=== PATIENT | male | born 1945 | race Caucasian/White ===

== ENCOUNTER 2022-03-10 06:00 | Inpatient (IN) | payer MEDICARE, MEDICAID, SELFPAY ==
--- NOTE | ~2022-03-10 | XR_ITS ---
EXAMINATION: XR CHEST CLINICAL INFORMATION: Evaluate for pleural effusion. COMPARISON: Chest radiograph 03/12/2022, CT abdomen pelvis 03/13/2021 TECHNIQUE: Frontal view of the chest was obtained. FINDINGS: Moderate blunting of the left costophrenic sulcus is again noted along with left base dense airspace type opacification and gradient opacification suspicious for fluid within the left major fissure. No pneumothoraces are identified. The visualized right lung is clear. The cardiac silhouette is grossly normal in size. Findings suspicious for a trace left apical pneumothorax are noted with possible visualization of the visceral pleural margin in projection with the left lung apex approximately 1 cm from the parietal pleura. XR/XR chest 1V IMPRESSION: *Moderate left pleural effusion grossly unchanged in size compared with 03/12/2022 11:36 AM. *Possible trace left apical pneumothorax new compared with 03/12/2022. *Unchanged left base airspace opacification which may represent a combination of pulmonary consolidation and as suggested on the CT of the abdomen and pelvis from 03/13/2022 may also represent of a possible left lower lobe mass. This critical result (pneumothorax) was discussed with Razia Rowe MD by telephone at 03/17/2022 8:23 PM and it was ascertained that the content and urgency of the report was understood at the time of direct communication.
--- NOTE | ~2022-03-10 | CT_ITS ---
EXAMINATION: CT ABDOMEN AND PELVIS WITH CONTRAST CLINICAL INFORMATION: Pancreatic mass. Possible underlying lung mass. COMPARISON: CT chest of 03/10/2022. TECHNIQUE: Multidetector volumetric images were obtained from the superior aspect of the liver through the pubic symphysis following administration 75 mL of Omnipaque 300 intravenous contrast. Sagittal and coronal reformatted images were obtained on the technologist's workstation. Oral contrast: No This CT examination was performed using dose optimization techniques as appropriate, variously including the following: *Automated exposure control *Adjustment of mA and/or kV according to patient size (this includes techniques or standardized protocols for targeted exams where dose is matched to indication/reason for exam; i.e. extremities or head) *Use of iterative reconstruction technique DLP: 446 mGy-cm FINDINGS: LUNG BASES: There is a small left pleural effusion with what appears to be atelectasis. An associated left lower lobe mass cannot be excluded. Discoid atelectasis is seen within the right lower lobe. Heart normal size. Coronary artery calcification present. No pericardial effusion. LIVER, GALLBLADDER, AND BILIARY TREE: The liver is normal in size, shape, and attenuation. No focal hepatic lesion or biliary ductal dilatation is present. The gallbladder is unremarkable with no evidence of radiopaque gallstones, gallbladder wall thickening, or obvious pericholecystic inflammatory changes. PANCREAS: There has been some fatty involution of the pancreas. About the ventral aspect of the body of the pancreas, there is a fluid density 2.1 x 1.4 x 1.8 cm structure which may represent a serous cystadenoma or mucinous (IPMN) pancreatic tumor. SPLEEN: Unremarkable. ADRENAL GLANDS: Unremarkable. KIDNEYS AND URETERS: The kidneys are normal in size, shape, and attenuation. No hydronephrosis, hydroureter, or calculi are seen. There is perinephric stranding. There is a 2.5 cm cyst exophytic in the lower pole of the left kidney. BLADDER: The urinary bladder has a thickened wall with multiple diverticula identified, one of which on the right side appears to contain a 1.5 cm bladder stone. The largest diverticulum seems to be in the superior posterior aspect measuring 2.1 cm in diameter. GASTROINTESTINAL TRACT: No free air or free fluid is identified. No dilated loops of large or small bowel are seen. There is diverticulosis of the colon without evidence of acute diverticulitis. No evidence of acute appendicitis. ABDOMINAL WALL: No significant hernia is appreciated. LYMPH NODES: No lymphadenopathy appreciated. VASCULAR: Moderate aortoiliac calcified plaque is present. No abdominal aortic aneurysm. Visceral vessels are patent. PELVIC VISCERA: Prominent prostate gland with a large amount of calcification. OSSEOUS STRUCTURES: No suspicious destructive bony lesion identified. CT/CT abdomen pelvis w con IMPRESSION: Left lower lobe effusion with parenchymal disease and possible underlying mass. 2.1 cm maximum dimension low-density lesion within the body of the pancreas which may represent a serous or mucinous pancreatic tumor. No findings to suggest metastatic disease. Left renal cyst without evidence of obstructive uropathy. Thick-walled urinary bladder with numerous diverticula, one of which contains a large bladder stone along the right side of the urinary bladder. Fleischner guidelines were followed.
--- NOTE | ~2022-03-10 | US_ITS ---
PROCEDURE: US INSERTION PLEURX CATHETER CLINICAL INFORMATION: Malignant left pleural effusion. COMPARISON: Previous chest x-ray and chest CT from earlier this month. PROCEDURE: Procedure and risks and benefits including bleeding, infection and pneumothorax were discussed with the patient and informed consent was obtained. The patient was positioned in the right lateral decubitus position. The left lateral chest was prepped and draped in the usual sterile fashion. The skin and soft tissues were anesthetized with 1% lidocaine plain. Using a 5-[place] catheter, access to the left pleural fluid was obtained. The skin and soft tissues of the more anterior left chest were anesthetized with 1% lidocaine plain. A small incision was made. A subcutaneous tunnel from the more anterior to the more posterior incision was anesthetized with 1% lidocaine plain. Using a tunneler, a 15.5-[place] Pleurx catheter was tunneled from the more anterior to the more posterior incision. An 035 guidewire was advanced through the 5-[place] Citizen dilator into the pleural space. Following serial dilatation and through a peel-away sheath, a 15.5-[place] Pleurx catheter was positioned in the left pleural space. Catheter was attached to a Vacutainer bottle. 1 L of serosanguineous fluid was removed. The posterior incision was closed using a 3-0 absorbable suture. The more anterior incision surrounding the drain was closed using a 3-0 mattress suture. Patient received Kefzol 2 g IV and fentanyl 75 mcg IV during the procedure. Follow-up chest x-ray was performed. FINDINGS: There is a large left pleural effusion. US/US insertion pluerx cath IMPRESSION: Ultrasound-guided 15.5-[place] left Pleurx catheter placement.
--- NOTE | ~2022-03-10 | XR_ITS ---
EXAMINATION: XR CHEST CLINICAL INFORMATION: Post left thoracentesis. COMPARISON: None TECHNIQUE: Inspiration/expiration 2 views of the chest were obtained. FINDINGS: Post left thoracentesis there is left lower lobe atelectatic changes. No visible pneumothorax or any residual left pleural effusion. The right lung is hypoexpanded with patchy atelectatic changes in the right lung base. The heart size and pulmonary vascularity is normal. No gross bony abnormality seen. XR/XR chest 2V IMPRESSION: Status post left thoracentesis there is no visible pneumothorax or residual left pleural effusion. There is left lower lobe atelectasis. Minimal atelectatic changes are also seen in the right lung base.
--- NOTE | ~2022-03-10 | XR_ITS ---
EXAMINATION: XR CHEST CLINICAL INFORMATION: Left chest tube. COMPARISON: 03/18/2022 chest radiographs. TECHNIQUE: Frontal view of the chest was obtained. FINDINGS: Support devices: Interval placement of left-sided chest tube with tip overlying the left upper lobe. There has been interval decrease in opacification in the left midlung with persistent small left pleural effusion. The right lung is clear. The heart and mediastinal structures are unremarkable. XR/XR chest 1V IMPRESSION: Interval decrease in left pleural effusion status post left chest tube placement. Persistent small left pleural effusion without overt pneumothorax.
--- NOTE | ~2022-03-10 | US_ITS ---
PROCEDURE: US-GUIDED THORACENTESIS, LEFT CLINICAL INFORMATION: Left pleural effusion. COMPARISON: None. TECHNIQUE: Following explaining ultrasound-guided left thoracentesis procedure, benefits and risk, a written consent was obtained. Patient was placed sitting upright on ultrasound stretcher and preliminary ultrasound imaging through the left posterior chest was obtained. An optimal site was selected and marked along the left infrascapular line. The marked area was cleaned and draped in usual sterile manner. 1% lidocaine was injected at the puncture site. Patient was monitored by IR nurse. Through a small skin incision a 4 Arabic TapShield catheter was advanced into the pleural space. After observing fluid return the stylet was withdrawn and catheter connected to vacuum bottle via connecting cannula. After obtaining all fluid and observing no more fluid return, the catheter was withdrawn making sure no air leaked in. Sterile dressing applied postprocedure. Patient tolerated procedure extremely well. FINDINGS: On preliminary ultrasound imaging there is a [id number] left pleural effusion. Approximately 1.1 L of clear yellowish fluid was drained from the left pleural space. Part of this fluid was sent to lab as per referring physician's orders. US/US thoracentesis IMPRESSION: Successful ultrasound-guided left thoracentesis performed with approximately 1.1 L of yellowish fluid drained from the left pleural space.
--- NOTE | ~2022-03-10 | XR_ITS ---
EXAMINATION: XR CHEST CLINICAL INFORMATION: Follow-up pneumothorax COMPARISON: Previous chest x-ray from yesterday TECHNIQUE: 2 views of the chest were obtained. FINDINGS: The cardiac silhouette is enlarged but stable. There is a small left pleural effusion that appears unchanged. There is a large mass in the left perihilar region versus loculated pleural fluid. There is more peripheral left lung atelectasis adjacent to the pleural fissure. The right lung is clear. There is a very small right pleural effusion. There is no pneumothorax. XR/XR chest 2V IMPRESSION: No pneumothorax. Stable left pleural effusion and left lung atelectasis. Question loculated left pleural effusion along the major fissure versus lung mass.
--- NOTE | ~2022-03-10 | XR_ITS ---
EXAMINATION: XR CHEST CLINICAL INFORMATION: Shortness of breath COMPARISON: None TECHNIQUE: Frontal view of the chest was obtained. FINDINGS: There is elevation of the left hemidiaphragm with adjacent basilar opacity. Mild atelectasis is suspected at the right lung base. No appreciable pneumothorax or significant pleural effusion. The cardiomediastinal contour is unremarkable. No acute osseous findings are seen. XR/XR chest 1V IMPRESSION: Elevated left hemidiaphragm with bibasilar opacities suggesting at least a component of atelectasis. Superimposed consolidation including from aspiration would be difficult to exclude in the proper clinical setting.
--- NOTE | ~2022-03-10 | CT_ITS ---
EXAMINATION: CT ANGIOGRAM OF THE CHEST WITH AND WITHOUT CONTRAST (CT PULMONARY ANGIOGRAM FOR PE) CLINICAL INFORMATION: Acute hypoxia. Shortness of breath. Elevated d-dimer. COMPARISON: Chest radiograph done earlier the same day. TECHNIQUE: Prior to contrast administration, noncontrast localization images were obtained. Subsequently, multidetector volumetric imaging was performed from the thoracic inlet to below the diaphragms following the administration of 65 mL Omnipaque 350 intravenous contrast. No contrast reaction reported. Sagittal, coronal, and MIP oblique sagittal reformatted images were obtained on the CT workstation, uploaded to PACS, and reviewed. This CT examination was performed using dose optimization techniques as appropriate, variously including the following: *Automated exposure control *Adjustment of mA and/or kV according to patient size (this includes techniques or standardized protocols for targeted exams where dose is matched to indication/reason for exam; i.e. extremities or head) *Use of iterative reconstruction technique Total exam dose-length product 370 mGy-cm FINDINGS: QUALITY OF STUDY/CONTRAST BOLUS: Satisfactory. PULMONARY ARTERIES: No central or segmental pulmonary emboli. THORACIC AORTA: No aneurysm or dissection. Partially visualized prominent mural plaque within the infrarenal abdominal aorta measuring up to 1.9 x 0.8 cm. LUNG/PLEURA: There is a moderate left-sided pleural effusion with adjacent atelectasis versus infiltrates. There is ovoid density along the left minor fissure measuring 5.4 x 7.3 cm in greatest axial dimension with internal vasculature and measuring approximately 44 Hounsfield units. Findings could represent complex fluid versus a soft tissue mass. There is adjacent atelectasis versus infiltrates. There is linear scarring versus atelectasis within the right lower lobe. MEDIASTINUM: Normal heart size. No pericardial effusion. No hilar or mediastinal lymphadenopathy. No evidence of septal bowing or right heart strain. CHEST WALL/AXILLA: No axillary or internal mammary lymphadenopathy. OSSEOUS STRUCTURES: No acute or suspicious osseous abnormality. UPPER ABDOMEN: Along the dorsal aspect of the pancreatic body, there is a lobulated 2.0 x 1.6 cm focus measuring up to 3.6 cm. Findings could represent a cystic pancreatic lesion. The remaining pancreas is diffusely atrophic and fatty replaced. Upper abdominal structures are otherwise unremarkable. No reflux of contrast into the hepatic veins to suggest elevated right heart pressures. CT/CT angio chest PE protocol IMPRESSION: 1. No central or segmental pulmonary embolism. 2. Moderate left-sided pleural effusion with adjacent atelectasis versus infiltrates. Ovoid density measuring up to 7.3 cm with internal vasculature measuring approximately 44 Hounsfield units. Findings could represent a complex cystic focus versus a soft tissue mass. This is concerning for a neoplastic process. There is adjacent atelectasis versus infiltrates. Alternatively, findings could represent atypical appearance of a focal infectious or inflammatory process versus complex fluid within the fissure. 3. No significant lymphadenopathy. 4. Partially visualized cystic lesion along the dorsal aspect of the pancreatic body measuring up to 2.0 cm. The remaining pancreatic parenchyma is significantly atrophic and fatty replaced. 5. Partially visualized mural plaque within the upper abdominal aorta measuring up to 1.9 x 0.8 cm and involving approximately 40% of the aortic lumen. VTE: negative
--- NOTE | 2022-03-10 06:10 | ECG_ITS ---
Test Reason : AFIB Blood Pressure : / mmHG Vent. Rate : 087 BPM Atrial Rate : 000 BPM P-R Int : 000 ms QRS Dur : 076 ms QT Int : 348 ms P-R-T Axes : 000 031 043 degrees QTc Int : 418 ms Atrial fibrillation Low voltage QRS Abnormal ECG No previous ECGs available Referred By: Aide Gao Electronically Signed By:Shaji Schafer
[2022-03-10 06:17] VITALS: BP 156/68; PULSE 90; RESP 24; TEMP 37; O2SAT 92
[2022-03-10 06:18] VITALS: BMI 28.3
--- NOTE | 2022-03-10 06:19 | ED_ITS ---
HPI - SOB/Dyspnea General Chief Complaint: Dyspnea Stated Complaint: SOB Time Seen by Provider: 03/10/22 06:09 Source: patient and EMS Mode of arrival: EMS History of Present Illness HPI Narrative: 76-year-old male with recent history of CVA and recently treated for pneumonia is brought in by EMS for getting up this morning and becoming acutely short of breath and found to be 87% on room air and increased work of breathing with tachypnea. Patient reports he does have a history of atrial fibrillation but is not currently on anticoagulation. He states he has never been told that he has a condition called congestive heart failure, COPD, asthma and denies any chest pain/palpitations/abdominal symptoms. Patient currently is feeling much improved. Related Data Allergies Allergy/AdvReac Type Severity Reaction Status Date / Time Unable to Assess Allergy Unverified 03/10/22 06:09 Review of Systems Review of Systems: Pertinent positives and negatives as stated in HPI 10 point review of systems is otherwise negative. [facility] Past Medical History Source: nursing notes reviewed Social History Social History Advance Directives: No Advance Directives Information Provided: No Physical Exam Vital Signs: Vital Signs: Last Vital Signs Temp 98.6 F 03/10/22 06:17 Pulse 85 03/10/22 07:27 Resp 20 03/10/22 07:27 BP 128/60 03/10/22 07:27 Pulse Ox 93 03/10/22 07:27 BMI result Body Mass Index 28.3 VITAL SIGNS: Reviewed. GENERAL: Elderly,well nourished, in no acute distress. HEAD: Normocephalic/atraumatic EYES: PERRLA, EOMI EARS: Ext canals without abnormality NOSE: Nares patent bilateral OROPHARYNX: no oral lesions noted, posterior pharynx clear LUNGS: Good inspiratory effort without wheeze/rhonchi/rales. SpO2<92> on 4 L nasal cannula CARDIOVASCULAR: Regular rate and rhythm without noted murmurs, no JVD or lower extremity edema. ABDOMEN: Soft, non-tender, non-distended with bowel sounds. MUSCULOSKELETAL: No tenderness, deformities, or effusions noted on gross ins pection. EXTREMITIES: No cyanosis, clubbing or edema. SKIN: Inspection of the skin reveals no rashes NEUROLOGIC: Alert and oriented x 4. Strength and sensation to light touch were grossly intact x 4, patient has residual speech difficulties from his CVA as well as ambulating with a walker at baseline. Course Course Course Narrative: 0623: 76-year-old male with history and clinical presentation of acute onset respiratory failure will evaluate for possibility of pulmonary edema, hypercapnia although patient has no history of COPD or asthma as not noted to be wheezing. In addition, will rule out the possibility a pneumonia. On review of all investigations there is a noted elevated BNP and patient received 60 mg of Lasix, D-dimer was mildly elevated and given the acuteness of patient's shortness of breath and persistent need for supplemental oxygen pursued CT angio with PE protocol. Under brief review of the CT scan there is a large left pleural effusion that is at least a part contributed year to patient's persistent hypoxia. I requested all records from [facility] and signed out to Dr. Villeda. Patient remains otherwise hemodynamically stable, calm, and comfortable. MDM - SOB/Dyspnea Lab Data Result diagrams: 03/10/22 06:34 03/10/22 06:34 Labs: Lab Results 03/10/22 03/10/22 03/10/22 Range/Units 06:34 06:34 06:34 WBC (4.8-10.8) X10*3/uL RBC (4.60-5.80) X10*6/uL Hgb (14.0-18.0) g/dl Hct (42.0-52.0) % MCV (80.0-98.0) fL MCH (27.0-33.0) pg MCHC (31.0-36.0) g/dl RDW (11.0-16.0) % Plt Count (160-400) X10*3/uL MPV (9.4-12.4) fL Immature Gran % (Auto) (0.0-0.4) % Neut % (Auto) (45-73) % Lymph % (Auto) (20-40) % Catron % (Auto) (2-11) % Eos % (Auto) (0-4) % Baso % (Auto) (0-2) % Lymph # (Auto) (1.2-4.9) X10*3/uL Catron # (Auto) (0.1-1.2) X10*3/uL Eos # (Auto) (0.0-0.4) X10*3/uL Baso # (Auto) (0.0-0.2) X10*3/uL Abs Immat Gran (auto) (0.00-0.03) X10*3/uL Absolute Neuts (auto) (2.0-8.3) x10*3/uL Absolute Nucleated RBC (0.0-0.012) X10*3/uL Nucleated RBC % (auto) (0.0-0.2) /100WBC D-Dimer High Sensitivty NG/ML VBG pH (7.32-7.43) VBG pCO2 mmHg VBG pO2 mmHg VBG HCO3 (22-26) mmol/L VBG O2 Saturation % VBG Base Excess mmol/L Sodium (135-145) mmol/L Potassium (3.3-5.1) mmol/L Chloride (96-108) mmol/L Carbon Dioxide (22-29) mmol/L Anion Gap (12-20) BUN (9-16) mg/dL Creatinine (0.5-1.4) mg/dL Estim Creat Clear Calc Estimated GFR Random Glucose (60-115) mg/dL Lactic Acid (0.5-2.0) mmol/L Calcium (8.4-10.2) mg/dL Total Bilirubin (0.0-1.0) mg/dL AST (5-37) U/L ALT (0-40) U/L Alkaline Phosphatase (39-117) U/L Troponin I High Sens (<3.5-35.0) ng/L B-Natriuretic Peptide 323 H (<100) pg/mL Total Protein (6.5-8.0) g/dL Albumin (3.5-5.0) g/dL COVID-19 ([facility]) Negative (Negative) COVID-19 Clin Com See Note Influenza Type A (JOSEFA) Negative (Negative) Influenza Type B (JOSEFA) Negative (Negative) Influenza A & B Note See Note 03/10/22 03/10/22 03/10/22 Range/Units 06:34 06:34 06:34 WBC 8.3 (4.8-10.8) X10*3/uL RBC 4.19 L (4.60-5.80) X10*6/uL Hgb 12.2 L (14.0-18.0) g/dl Hct 37.4 L (42.0-52.0) % MCV 89.3 (80.0-98.0) fL MCH 29.1 (27.0-33.0) pg MCHC 32.6 (31.0-36.0) g/dl RDW 13.2 (11.0-16.0) % Plt Count 241 (160-400) X10*3/uL MPV 9.4 (9.4-12.4) fL Immature Gran % (Auto) 0.4 (0.0-0.4) % Neut % (Auto) 69.9 (45-73) % Lymph % (Auto) 16.2 L (20-40) % Catron % (Auto) 9.8 (2-11) % Eos % (Auto) 3.1 (0-4) % Baso % (Auto) 0.6 (0-2) % Lymph # (Auto) 1.3 (1.2-4.9) X10*3/uL Catron # (Auto) 0.8 (0.1-1.2) X10*3/uL Eos # (Auto) 0.3 (0.0-0.4) X10*3/uL Baso # (Auto) 0.1 (0.0-0.2) X10*3/uL Abs Immat Gran (auto) 0.03 (0.00-0.03) X10*3/uL Absolute Neuts (auto) 5.8 (2.0-8.3) x10*3/uL Absolute Nucleated RBC 0.000 (0.0-0.012) X10*3/uL Nucleated RBC % (auto) 0.0 (0.0-0.2) /100WBC D-Dimer High Sensitivty NG/ML VBG pH (7.32-7.43) VBG pCO2 mmHg VBG pO2 mmHg VBG HCO3 (22-26) mmol/L VBG O2 Saturation % VBG Base Excess mmol/L Sodium 138 (135-145) mmol/L Potassium 4.5 (3.3-5.1) mmol/L Chloride 100 (96-108) mmol/L Carbon Dioxide 28 (22-29) mmol/L Anion Gap 15 (12-20) BUN 20 H (9-16) mg/dL Creatinine 0.96 (0.5-1.4) mg/dL Estim Creat Clear Calc 65.0 Estimated GFR > 60 Random Glucose 145 H (60-115) mg/dL Lactic Acid 1.0 (0.5-2.0) mmol/L Calcium 9.3 (8.4-10.2) mg/dL Total Bilirubin 0.5 (0.0-1.0) mg/dL AST 14 (5-37) U/L ALT 10 (0-40) U/L Alkaline Phosphatase 68 (39-117) U/L Troponin I High Sens (<3.5-35.0) ng/L B-Natriuretic Peptide (<100) pg/mL Total Protein 6.7 (6.5-8.0) g/dL Albumin 3.4 L (3.5-5.0) g/dL COVID-19 ([facility]) (Negative) COVID-19 Clin Com Influenza Type A (JOSEFA) (Negative) Influenza Type B (JOSEFA) (Negative) Influenza A & B Note 03/10/22 03/10/22 03/10/22 Range/Units 06:34 06:34 06:37 WBC (4.8-10.8) X10*3/uL RBC (4.60-5.80) X10*6/uL Hgb (14.0-18.0) g/dl Hct (42.0-52.0) % MCV (80.0-98.0) fL MCH (27.0-33.0) pg MCHC (31.0-36.0) g/dl RDW (11.0-16.0) % Plt Count (160-400) X10*3/uL MPV (9.4-12.4) fL Immature Gran % (Auto) (0.0-0.4) % Neut % (Auto) (45-73) % Lymph % (Auto) (20-40) % Catron % (Auto) (2-11) % Eos % (Auto) (0-4) % Baso % (Auto) (0-2) % Lymph # (Auto) (1.2-4.9) X10*3/uL Catron # (Auto) (0.1-1.2) X10*3/uL Eos # (Auto) (0.0-0.4) X10*3/uL Baso # (Auto) (0.0-0.2) X10*3/uL Abs Immat Gran (auto) (0.00-0.03) X10*3/uL Absolute Neuts (auto) (2.0-8.3) x10*3/uL Absolute Nucleated RBC (0.0-0.012) X10*3/uL Nucleated RBC % (auto) (0.0-0.2) /100WBC D-Dimer High Sensitivty 443 NG/ML VBG pH 7.43 (7.32-7.43) VBG pCO2 39 mmHg VBG pO2 208 mmHg VBG HCO3 26 (22-26) mmol/L VBG O2 Saturation 100.0 % VBG Base Excess 2.2 mmol/L Sodium (135-145) mmol/L Potassium (3.3-5.1) mmol/L Chloride (96-108) mmol/L Carbon Dioxide (22-29) mmol/L Anion Gap (12-20) BUN (9-16) mg/dL Creatinine (0.5-1.4) mg/dL Estim Creat Clear Calc Estimated GFR Random Glucose (60-115) mg/dL Lactic Acid (0.5-2.0) mmol/L Calcium (8.4-10.2) mg/dL Total Bilirubin (0.0-1.0) mg/dL AST (5-37) U/L ALT (0-40) U/L Alkaline Phosphatase (39-117) U/L Troponin I High Sens 6.1 (<3.5-35.0) ng/L B-Natriuretic Peptide (<100) pg/mL Total Protein (6.5-8.0) g/dL Albumin (3.5-5.0) g/dL COVID-19 ([facility]) (Negative) COVID-19 Clin Com Influenza Type A (JOSEFA) (Negative) Influenza Type B (JOSEFA) (Negative) Influenza A & B Note ECG Data Attestation: I personally reviewed and interpreted this ECG as follows: Prior ECG tracings: not available for review Interpretation: Atrial fibrillation, HR-87, no STEMI, QRS/QTC are within normal limits. Discharge Plan Discharge Clinical Impression: Acute respiratory failure with hypoxemia, Atrial fibrillation, Pleural effusion, left, Pulmonary edema Patient Disposition: Still a Patient
[2022-03-10 06:42] LABS: MANUAL DIFF FLAG NO
[2022-03-10 06:45] LABS: Basophils Absolute Auto 0.1 X10*3/uL (0.0-0.2); Basophils Percent Auto 0.6 % (0-2); Eosinophils Absolute Auto 0.3 X10*3/uL (0.0-0.4); Eosinophils Percent Auto 3.1 % (0-4); Hematocrit 37.4 % (42.0-52.0); Hemoglobin 12.2 g/dl (14.0-18.0); Imm Gran Abs Auto 0.03 X10*3/uL (0.00-0.03); Imm Gran Pct Auto 0.4 % (0.0-0.4); Lymphocytes Absolute Auto 1.3 X10*3/uL (1.2-4.9); Lymphocytes Percent Auto 16.2 % (20-40); Mean Corpuscular HGB Conc 32.6 g/dl (31.0-36.0); Mean Corpuscular Hemoglobin 29.1 pg (27.0-33.0); Mean Corpuscular Volume 89.3 fL (80.0-98.0); Mean Platelet Volume 9.4 fL (9.4-12.4); Monocytes Absolute Auto 0.8 X10*3/uL (0.1-1.2); Monocytes Percent Auto 9.8 % (2-11); Neutrophils Absolute Auto 5.8 x10*3/uL (2.0-8.3); Neutrophils Percent Auto 69.9 % (45-73); Platelet Count 241 X10*3/uL (160-400); Red Blood Count 4.19 X10*6/uL (4.60-5.80); Red Cell Distribution Width 13.2 % (11.0-16.0); Venous Blood Gas Refer to POC result; White Blood Count 8.3 X10*3/uL (4.8-10.8)
[2022-03-10 06:46] LABS: VBG Base Excess 2.2 mmol/L; VBG HCO3 26 mmol/L (22-26); VBG pCO2 39 mmHg; VBG pH 7.43 (7.32-7.43); VBG pO2 208 mmHg
[2022-03-10 06:51] LABS: D Dimer High Sensitivity 443 NG/ML
[2022-03-10 07:00] LABS: COVID-19 Test Negative (Negative); IDNOW Serial# 16C4AD1C
[2022-03-10 07:01] LABS: Alanine Aminotransferase 10 U/L (0-40); Albumin Level 3.4 g/dL (3.5-5.0); Alkaline Phosphatase 68 U/L (39-117); Anion Gap 15 (12-20); Aspartate Amino Transferase 14 U/L (5-37); Bilirubin Total 0.5 mg/dL (0.0-1.0); Blood Urea Nitrogen 20 mg/dL (9-16); Calcium 9.3 mg/dL (8.4-10.2); Carbon Dioxide 28 mmol/L (22-29); Chloride 100 mmol/L (96-108); Estimated Glomerular Filt Rate > 60; Glucose Random 145 mg/dL (60-115); Influenza A Negative (Negative); Influenza B2 Negative (Negative); Potassium 4.5 mmol/L (3.3-5.1); Sodium 138 mmol/L (135-145); Total Protein 6.7 g/dL (6.5-8.0)
[2022-03-10 07:03] LABS: B Type Natriuretic Peptide 323 pg/mL (<100); Troponin-I High Sensitivity 6.1 ng/L (<3.5-35.0)
[2022-03-10 07:05] VITALS: BP 114/55; PULSE 86; RESP 20; O2SAT 90
[2022-03-10 07:27] VITALS: BP 128/60; PULSE 85; RESP 20; O2SAT 93
[2022-03-10] MEDS: Furosemide 100 MG/10 ML VIAL 60 MG IVPUSH (07:29)
[2022-03-10] MEDS: iohexoL 350 MG/ML 75 ML INFUS..BTL 65 ML IV (08:23)
--- NOTE | 2022-03-10 09:44 | PHA.MEDREC ---
Pharmacy Consult ? Medication Reconciliation Pharmacy has completed the medication reconciliation. Patient came from [facility] with a medication list. Annemarie Hester, SharonD
--- NOTE | 2022-03-10 09:52 | PC.NURSE ---
pt on 10L via oxymask. O2 sats 95%.
[2022-03-10] MEDS: levoFLOXacin/D5W 500 MG/100 ML PIGGYBACK 100 MG IV (10:17)
[2022-03-10 10:21] LABS: INTERNATIONAL NORM RATIO 1.1 (0.9-1.1); Prothrombin Time 12.7 SEC (9.9-13.0)
[2022-03-10 10:24] LABS: Lactic Acid 1.3 mmol/L (0.5-2.0)
--- NOTE | 2022-03-10 12:26 | PM.IMHP ---
History of Present Illness Date of Service: 03/10/22 Chief Complaint: sob 76M presented with sob. history difficult to obtain due to brocas aphasia from preivous cva, patient reports 2 weeks worsening sob, cough, no fever, no chillds, no chest pain. patient was found to be hypoxic in the 70s on room air. in ED was 87% on room air. CT chest showed no pe, but showed left effusion with 7.3cm ovoid density. patient given levaquin. Review of Systems Review of Systems: Constitutional: Denies fever, denies Chills Eyes: denies blurry vision ENT: denies sore throat CVS: denies chest pain Respiratory: dyspnea GI: no abdominal pain : denies dysuria MSK: denies neck pain Skin: denies rash Neuro: chornic right sided motor weakness Psych: denies suicidal ideation Endocrine: denies heat/cold intolerance Hematologic: denies easy bleeding Allergy: denies hives [facility] Medical History (Updated 03/10/22 @ 12:31 by Malcolm Light MD) Aphasia Diabetes mellitus History of CVA (cerebrovascular accident) Right hemiparesis Pertinent family history: patient unaware Social History (Updated 03/10/22 @ 12:31 by Malcolm Light MD) Alcohol intake: never Patient Tobacco Use Status: Tobacco use Unknown Advance Directives: No Advance Directives Information Provided: No Meds Allergies Allergy/AdvReac Type Severity Reaction Status Date / Time Unable to Assess Allergy Unverified 03/10/22 06:09 Active Medications: Current Medications Amlodipine Besylate (Amlodipine Besylate 5 Mg Tablet) 5 mg PO DAILY [facility]; Protocol Aspirin (Aspirin 81 Mg Tab.Chew) 81 mg PO DAILY [facility] Atorvastatin Calcium (Atorvastatin Calcium 40 Mg Tablet) 40 mg PO DAILY [facility] Doxazosin Mesylate (Doxazosin Mesylate 2 Mg Tablet) 8 mg PO BEDTIME [facility]; Protocol Finasteride (Finasteride 5 Mg Tablet) 5 mg PO DAILY [facility] Non-Formulary Medication (Clorazepate Dipotassium) 7.5 mg PO TID [facility] Pharmacy Consult (Consult Rx Perform Med Rec) 1 each MISCELLANE ONCE PRN PRN Reason: Consult order Vitamin D (Cholecalciferol (Vitamin D3) 25 Mcg Tablet) 50 mcg PO DAILY [facility] Home Medications Medication Instructions Recorded Confirmed Last Taken Type acetaminophen 325 mg tablet 650 mg PO Q4H PRN 03/10/22 03/10/22 03/10/22 History amlodipine 5 mg tablet 1 tab PO DAILY 03/10/22 03/10/22 03/09/22 History aspirin 81 mg chewable tablet 81 mg PO DAILY 03/10/22 03/10/22 03/09/22 History atorvastatin 40 mg tablet 1 tab PO DAILY 03/10/22 03/10/22 03/09/22 History cholecalciferol (vitamin D3) 50 50 mcg PO DAILY 03/10/22 03/10/22 03/09/22 History mcg (2,000 unit) tablet clorazepate dipotassium 7.5 mg 7.5 mg PO TID 03/10/22 03/10/22 03/09/22 History tablet doxazosin 8 mg tablet 1 tab PO BEDTIME 03/10/22 03/10/22 03/09/22 History finasteride 5 mg tablet 1 tab PO DAILY 03/10/22 03/10/22 03/09/22 History losartan 100 mg tablet 1 tab PO DAILY 03/10/22 03/10/22 03/09/22 History metformin 500 mg tablet 1 tab PO BID 03/10/22 03/10/22 03/09/22 History omega 1-pis-cek-fish oil 1,200 mg 3 cap PO DAILY 03/10/22 03/10/22 03/09/22 History (144 mg-216 mg) capsule (Fish Oil) perphenazine 2 mg tablet 4 mg PO TID 03/10/22 03/10/22 03/09/22 History Physical Exam Vital Signs and Narrative: Vital Signs: Last Vital Signs Temp 98.6 F 03/10/22 06:17 Pulse 85 03/10/22 07:27 Resp 20 03/10/22 07:27 BP 128/60 03/10/22 07:27 Pulse Ox 93 03/10/22 07:27 BMI result Body Mass Index 28.3 General: no acute distress HEENT: atraumatic Neck: normal to visual inspection CVS: S1, S2, RRR Resp: diminished left sided Chest: non tender GI: soft, non tender, non distended : no CVA tenderness Skin: no rashes Extremities: no edema Neuro: Oriented X3, brocas aphasia, right hemiparesis Psych: cooperative Results Labs CBC and Chem 7: 03/10/22 06:34 03/10/22 06:34 Labs: Laboratory Results - last 24 hr 03/10/22 03/10/22 03/10/22 06:34 06:34 06:34 MCV MCH MCHC RDW Plt Count MPV Immature Gran % (Auto) Neut % (Auto) Lymph % (Auto) Russell % (Auto) Eos % (Auto) Baso % (Auto) Lymph # (Auto) Russell # (Auto) Eos # (Auto) Baso # (Auto) Abs Immat Gran (auto) Absolute Neuts (auto) Absolute Nucleated RBC Nucleated RBC % (auto) PT INR D-Dimer High Sensitivty VBG pH VBG pCO2 VBG pO2 VBG HCO3 VBG O2 Saturation VBG Base Excess Anion Gap Estim Creat Clear Calc Estimated GFR Random Glucose Lactic Acid Calcium Total Bilirubin AST ALT Alkaline Phosphatase Troponin I High Sens B-Natriuretic Peptide 323 H Total Protein Albumin COVID-19 ([facility]) Negative COVID-19 Clin Com See Note Influenza Type A (JOSEFA) Negative Influenza Type B (JOSEFA) Negative Influenza A & B Note See Note 03/10/22 03/10/22 03/10/22 06:34 06:34 06:34 MCV 89.3 MCH 29.1 MCHC 32.6 RDW 13.2 Plt Count 241 MPV 9.4 Immature Gran % (Auto) 0.4 Neut % (Auto) 69.9 Lymph % (Auto) 16.2 L Russell % (Auto) 9.8 Eos % (Auto) 3.1 Baso % (Auto) 0.6 Lymph # (Auto) 1.3 Russell # (Auto) 0.8 Eos # (Auto) 0.3 Baso # (Auto) 0.1 Abs Immat Gran (auto) 0.03 Absolute Neuts (auto) 5.8 Absolute Nucleated RBC 0.000 Nucleated RBC % (auto) 0.0 PT INR D-Dimer High Sensitivty VBG pH VBG pCO2 VBG pO2 VBG HCO3 VBG O2 Saturation VBG Base Excess Anion Gap 15 Estim Creat Clear Calc 65.0 Estimated GFR > 60 Random Glucose 145 H Lactic Acid 1.0 Calcium 9.3 Total Bilirubin 0.5 AST 14 ALT 10 Alkaline Phosphatase 68 Troponin I High Sens B-Natriuretic Peptide Total Protein 6.7 Albumin 3.4 L COVID-19 ([facility]G) COVID-19 Clin Com Influenza Type A (JOSEFA) Influenza Type B (JOSEFA) Influenza A & B Note 03/10/22 03/10/22 03/10/22 06:34 06:34 06:37 MCV MCH MCHC RDW Plt Count MPV Immature Gran % (Auto) Neut % (Auto) Lymph % (Auto) Russell % (Auto) Eos % (Auto) Baso % (Auto) Lymph # (Auto) Russell # (Auto) Eos # (Auto) Baso # (Auto) Abs Immat Gran (auto) Absolute Neuts (auto) Absolute Nucleated RBC Nucleated RBC % (auto) PT INR D-Dimer High Sensitivty 443 VBG pH 7.43 VBG pCO2 39 VBG pO2 208 VBG HCO3 26 VBG O2 Saturation 100.0 VBG Base Excess 2.2 Anion Gap Estim Creat Clear Calc Estimated GFR Random Glucose Lactic Acid Calcium Total Bilirubin AST ALT Alkaline Phosphatase Troponin I High Sens 6.1 B-Natriuretic Peptide Total Protein Albumin COVID-19 ([facility]) COVID-19 Clin Com Influenza Type A (JOSEFA) Influenza Type B (JOSEFA) Influenza A & B Note 03/10/22 03/10/22 10:10 10:10 MCV MCH MCHC RDW Plt Count MPV Immature Gran % (Auto) Neut % (Auto) Lymph % (Auto) Russell % (Auto) Eos % (Auto) Baso % (Auto) Lymph # (Auto) Russell # (Auto) Eos # (Auto) Baso # (Auto) Abs Immat Gran (auto) Absolute Neuts (auto) Absolute Nucleated RBC Nucleated RBC % (auto) PT 12.7 INR 1.1 D-Dimer High Sensitivty VBG pH VBG pCO2 VBG pO2 VBG HCO3 VBG O2 Saturation VBG Base Excess Anion Gap Estim Creat Clear Calc Estimated GFR Random Glucose Lactic Acid 1.3 Calcium Total Bilirubin AST ALT Alkaline Phosphatase Troponin I High Sens B-Natriuretic Peptide Total Protein Albumin COVID-19 ([facility]) COVID-19 Clin Com Influenza Type A (JOSEFA) Influenza Type B (JOSEFA) Influenza A & B Note Imaging Radiologist's Impressions: Impressions Chest X-Ray 03/10/22 06:45 IMPRESSION: Elevated left hemidiaphragm with bibasilar opacities suggesting at least a component of atelectasis. Superimposed consolidation including from aspiration would be difficult to exclude in the proper clinical setting. Chest CTA 03/10/22 08:37 IMPRESSION: 1. No central or segmental pulmonary embolism. 2. Moderate left-sided pleural effusion with adjacent atelectasis versus infiltrates. Ovoid density measuring up to 7.3 cm with internal vasculature measuring approximately 44 Hounsfield units. Findings could represent a complex cystic focus versus a soft tissue mass. This is concerning for a neoplastic process. There is adjacent atelectasis versus infiltrates. Alternatively, findings could represent atypical appearance of a focal infectious or inflammatory process versus complex fluid within the fissure. 3. No significant lymphadenopathy. 4. Partially visualized cystic lesion along the dorsal aspect of the pancreatic body measuring up to 2.0 cm. The remaining pancreatic parenchyma is significantly atrophic and fatty replaced. 5. Partially visualized mural plaque within the upper abdominal aorta measuring up to 1.9 x 0.8 cm and involving approximately 40% of the aortic lumen. VTE: negative Assessment and Plan (1) Atrial fibrillation: Status: Acute (2) Pleural effusion, left: Status: Acute Plan 76M presented with sob acute hypoxic respriatory failue due to postobstructive pneumonia, left pleural effusion, underlying lesion empiric abx IR eval for drainage, possible biopsy wean o2 as toelrated DM insulin htn amldoipnie, history of cva with right hemiparesis and aphasia asa, statin bph doxazosin, finasteride dvt prophylaxis - lovenox full code patient with singificant hypoxia, high risk due to DM, history of cva, therefore, likely to require atleast 2 midnights. Quality Stroke Does the patient have a stroke diagnosis?: No VTE Prior VTE?: No VTE Risk Level:: Medical - moderate - high VTE Device Contraindication: Treatment Not Indicated VTE Drug Contraindication: N/A - Med Ordered
[2022-03-10] MEDS: cefTRIAXone sodium 1 GM in 0.9 % Sodium Chloride 50 ML IV (12:49)
[2022-03-10] MEDS: Enoxaparin Sodium 40 MG/0.4 ML SYRINGE SUBCUT (12:50)
[2022-03-10] MEDS: Perphenazine 4 MG TABLET PO ×2 (15:04→20:15)
[2022-03-10] MEDS: diazePAM 5 MG TABLET PO ×2 (15:10→20:16)
[2022-03-10 16:12] VITALS: BP 138/70; PULSE 77; RESP 20; TEMP 37.1; O2SAT 96
--- NOTE | 2022-03-10 16:45 | PC.NURSE ---
condom catheter placed. pt incontinent x2 and agreeable to the [place] cath.
[2022-03-10 18:19] LABS: Glucose, Whole Blood 150 mg/dL (60-115)
[2022-03-10 20:15] VITALS: BP 155/86; PULSE 77; RESP 18; TEMP 36.4; O2SAT 98
[2022-03-10] MEDS: Doxazosin Mesylate 2 MG TABLET 8 MG PO (20:16)
[2022-03-10] MEDS: 0.9 % Sodium Chloride Flush 3 ML SYRINGE IVFLUSH (20:17)
[2022-03-10 21:14] LABS: Glucose, Whole Blood 123 mg/dL (60-115)
[2022-03-10 23:27] VITALS: BP 127/65; PULSE 75; RESP 17; TEMP 36.1; O2SAT 97
[2022-03-11 06:28] LABS: Hematocrit 35.7 % (42.0-52.0); Hemoglobin 11.5 g/dl (14.0-18.0); Mean Corpuscular HGB Conc 32.2 g/dl (31.0-36.0); Mean Corpuscular Volume 89.9 fL (80.0-98.0); Mean Platelet Volume 9.3 fL (9.4-12.4); Platelet Count 251 X10*3/uL (160-400); Red Blood Count 3.97 X10*6/uL (4.60-5.80); Red Cell Distribution Width 13.1 % (11.0-16.0); White Blood Count 7.5 X10*3/uL (4.8-10.8)
[2022-03-11 07:08] LABS: Anion Gap 14 (12-20); Blood Urea Nitrogen 23 mg/dL (9-16); Calcium 9.4 mg/dL (8.4-10.2); Carbon Dioxide 32 mmol/L (22-29); Chloride 97 mmol/L (96-108); Estimated Glomerular Filt Rate > 60; Glucose Fasting 149 mg/dL (60-99); Magnesium 1.6 mg/dL (1.6-2.6); Potassium 4.4 mmol/L (3.3-5.1); Sodium 139 mmol/L (135-145)
[2022-03-11 07:41] LABS: Glucose, Whole Blood 133 mg/dL (60-115)
[2022-03-11 08:00] VITALS: BP 143/69; PULSE 83; RESP 19; TEMP 36.3; O2SAT 95
[2022-03-11] MEDS: diazePAM 5 MG TABLET PO ×3 (09:06→22:40)
[2022-03-11] MEDS: Finasteride 5 MG TABLET PO (09:06)
[2022-03-11] MEDS: Losartan Potassium 50 MG TABLET 100 MG PO (09:06)
[2022-03-11] MEDS: Atorvastatin Calcium 40 MG TABLET PO (09:06)
[2022-03-11] MEDS: Aspirin 81 MG TAB.CHEW PO (09:07)
[2022-03-11] MEDS: amLODIPine Besylate 5 MG TABLET PO (09:07)
[2022-03-11] MEDS: Cholecalciferol (Vitamin D3) 25 MCG TABLET 50 MCG PO (09:07)
[2022-03-11] MEDS: 0.9 % Sodium Chloride Flush 3 ML SYRINGE IVFLUSH ×2 (09:07→15:21)
[2022-03-11] MEDS: Perphenazine 4 MG TABLET PO ×3 (09:07→22:41)
[2022-03-11 11:21] LABS: Glucose, Whole Blood 152 mg/dL (60-115)
[2022-03-11] MEDS: Enoxaparin Sodium 40 MG/0.4 ML SYRINGE SUBCUT (12:20)
[2022-03-11] MEDS: cefTRIAXone sodium 1 GM in 0.9 % Sodium Chloride 50 ML IV (12:20)
[2022-03-11] MEDS: Insulin Lispro 100 UNIT/ML 3 ML VIAL SUBCUT (12:21)
--- NOTE | 2022-03-11 13:25 | HO.PM.IMPN ---
Subjective Subjective Date of Service: 03/11/22 Interval History: cc: sob interval history: improving Cardiovascular Cardiovascular: Reports no additional cardiovascular complaints Gastrointestinal Gastrointestinal: Reports no additional gastrointestinal complaints Physical Exam Vital Signs: Vital Signs: Last Vital Signs Temp 97.4 F 03/11/22 08:00 Pulse 83 03/11/22 08:00 Resp 19 03/11/22 08:00 BP 143/69 H 03/11/22 08:00 Pulse Ox 95 03/11/22 08:00 BMI result Body Mass Index 28.3 General: no acute distress HEENT:? a traumatic Neck: no rmal to visual ins pection CVS: S1, S 2, RRR Resp: dimin ished left sided C hest: non tender G I: soft, non tende r, non distended G U: no CVA tenderne ss Skin: no rashes Extremities: no e wilbert Neuro: [place] ed X3, brocas apha an, right hemipar esis Psych: ruyd ative Objective Data Active Medications Acetaminophen (Acetaminophen 325 Mg Tablet) 650 mg PO Q6H PRN PRN Reason: Pain, Mild (Pain Scale 1-3) Amlodipine Besylate (Amlodipine Besylate 5 Mg Tablet) 5 mg PO DAILY [facility]; Protocol Last Admin: 03/11/22 09:07 Dose: 5 mg Documented by: RAJESH Aspirin (Aspirin 81 Mg Tab.Chew) 81 mg PO DAILY [facility] Last Admin: 03/11/22 09:07 Dose: 81 mg Documented by: RAJESH Atorvastatin Calcium (Atorvastatin Calcium 40 Mg Tablet) 40 mg PO DAILY [facility] Last Admin: 03/11/22 09:06 Dose: 40 mg Documented by: RAJESH Dextrose (Dextrose 50 % 25 Gm/50 Ml Syringe) 25 gm IVPUSH Q15M PRN; Protocol PRN Reason: per Hypoglycemia Standing Ord. Diazepam (Diazepam 5 Mg Tablet) 5 mg PO TID [facility] Last Admin: 03/11/22 09:06 Dose: 5 mg Documented by: RAJESH Doxazosin Mesylate (Doxazosin Mesylate 2 Mg Tablet) 8 mg PO BEDTIME [facility]; Protocol Last Admin: 03/10/22 20:16 Dose: 8 mg Documented by: RAJESH Enoxaparin Sodium (Enoxaparin Sodium 40 Mg/0.4 Ml Syringe) 40 mg SUBCUT Q24H [facility] Last Admin: 03/11/22 12:20 Dose: 40 mg Documented by: ZENAIDA Finasteride (Finasteride 5 Mg Tablet) 5 mg PO DAILY [facility] Last Admin: 03/11/22 09:06 Dose: 5 mg Documented by: RAJESH Glucose (Glucose Gel 15 Gm Gel..Gram.) 15 gm PO Q15M PRN; Protocol PRN Reason: per Hypoglycemia Standing Ord. Ceftriaxone Sodium 1 gm/ (Sodium Chloride) 50 mls @ 100 mls/hr IV Q24H [facility] Last Infusion: 03/11/22 13:12 Dose: 0 mls/hr Documented by: ZENAIDA Insulin Human Lispro (Insulin Lispro 100 Unit/Ml 3 Ml Vial) 0 unit SUBCUT QIDACHS [facility]; Protocol Last Admin: 03/11/22 12:21 Dose: 2 unit Documented by: ZENAIDA Losartan Potassium (Losartan Potassium 50 Mg Tablet) 100 mg PO DAILY [facility]; Protocol Last Admin: 03/11/22 09:06 Dose: 100 mg Documented by: RAJESH Perphenazine (Perphenazine 4 Mg Tablet) 4 mg PO TID [facility] Last Admin: 03/11/22 09:07 Dose: 4 mg Documented by: RAJESH Pharmacy Consult (Consult Rx Perform Med Rec) 1 each MISCELLANE ONCE PRN PRN Reason: Consult order Sodium Chloride (0.9 % Sodium Chloride Flush 3 Ml Syringe) 3 ml IVFLUSH QSHIFT [facility] Last Admin: 03/11/22 09:07 Dose: 3 ml Documented by: RAJESH Vitamin D (Cholecalciferol (Vitamin D3) 25 Mcg Tablet) 50 mcg PO DAILY [facility] Last Admin: 03/11/22 09:07 Dose: 50 mcg Documented by: RAJESH Labs CBC & Chem 7: 03/11/22 06:12 03/11/22 06:12 Labs: Laboratory Results - last 24 hr 03/10/22 03/10/22 03/11/22 18:15 21:10 06:12 MCV 89.9 MCH 29.0 MCHC 32.2 RDW 13.1 Plt Count 251 MPV 9.3 L Absolute Nucleated RBC 0.000 Nucleated RBC % (auto) 0.0 Anion Gap Estim Creat Clear Calc Estimated GFR POC Glucose 150 H 123 H Fasting Glucose Calcium Magnesium 03/11/22 03/11/2222 06:12 07:33 11:10 MCV MCH MCHC RDW Plt Count MPV Absolute Nucleated RBC Nucleated RBC % (auto) Anion Gap 14 Estim Creat Clear Calc 60.0 Estimated GFR > 60 POC Glucose 133 H 152 H Fasting Glucose 149 H Calcium 9.4 Magnesium 1.6 Microbiology Microbiology Results: Microbiology 03/10/22 07:19 Blood Culture - Preliminary Blood - Venous No growth after 24 hours. 03/10/22 07:14 Blood Culture - Preliminary Blood - Venous No growth after 24 hours. Assessment and Plan (1) Diabetes mellitus: Status: Acute Plan 76M presented with sob acute hypoxic respriatory failue due to postobstructive pneumonia, left pleural effusion, underlying lesion continue empiric rocephin, follow up cultures IR eval for drainage, possible biopsy wean o2 as tolerated afib - unspecified not found in history, not on AC, will try to verify if new DM insulin htn amldoipnie, history of cva with right hemiparesis and aphasia asa, statin bph doxazosin, finasteride dvt prophylaxis - lovenox full code reason for continued hospitalization: still on high amount of o2 Quality Stroke Does the patient have a stroke diagnosis?: No VTE Prior VTE?: No VTE Risk Level:: Medical - moderate - high VTE Device Contraindication: Treatment Not Indicated VTE Drug Contraindication: N/A - Med Ordered
[2022-03-11 15:43] VITALS: BP 90/56; PULSE 69; RESP 18; TEMP 36.9; O2SAT 98
--- NOTE | 2022-03-11 16:12 | MHC.CM.PN ---
PATIENT IS FROM LTC AT [facility] HE HAS BEEN COVID VACCINATED X 4 USES A WALKER AT FACILITY IF SOMEONE HELPS HIM, OR WHEELCHAIR IF NOT. HCP IS DAUGHTER ENRIQUE BUT A COPY DID NOT COME WITH PATIENT. WILL BE REQUESTED IN [employer]. CASE MANAGEMENT FOLLOWING. HE IS EXPECTING TO UNDERGO REMOVAL OF FLUID TOMORROW (03/12/22) IMM 03/11 IN CHART
[2022-03-11 16:38] LABS: Glucose, Whole Blood 90 mg/dL (60-115)
[2022-03-11] MEDS: Magnesium Oxide 400 MG TABLET PO (17:54)
[2022-03-11 20:37] LABS: Glucose, Whole Blood 126 mg/dL (60-115)
[2022-03-11 22:39] VITALS: BP 133/68; PULSE 76
[2022-03-11] MEDS: Doxazosin Mesylate 2 MG TABLET 8 MG PO (22:40)
[2022-03-11 23:47] VITALS: BP 100/64; PULSE 83; RESP 17; TEMP 36.1; O2SAT 96
[2022-03-12] MEDS: 0.9 % Sodium Chloride Flush 3 ML SYRINGE IVFLUSH ×4 (00:28→23:11)
[2022-03-12 07:26] VITALS: BP 107/66; PULSE 83; RESP 18; TEMP 36.5; O2SAT 94
[2022-03-12 07:32] LABS: Glucose, Whole Blood 125 mg/dL (60-115)
[2022-03-12] MEDS: Magnesium Oxide 400 MG TABLET PO ×2 (09:08→16:46)
[2022-03-12] MEDS: Finasteride 5 MG TABLET PO (09:08)
[2022-03-12] MEDS: Losartan Potassium 50 MG TABLET 100 MG PO (09:08)
[2022-03-12] MEDS: Cholecalciferol (Vitamin D3) 25 MCG TABLET 50 MCG PO (09:08)
[2022-03-12] MEDS: amLODIPine Besylate 5 MG TABLET PO (09:09)
[2022-03-12] MEDS: Perphenazine 4 MG TABLET PO ×3 (09:09→23:10)
[2022-03-12] MEDS: Aspirin 81 MG TAB.CHEW PO (09:09)
[2022-03-12] MEDS: Atorvastatin Calcium 40 MG TABLET PO (09:09)
[2022-03-12] MEDS: diazePAM 5 MG TABLET PO ×3 (09:09→23:11)
[2022-03-12 12:05] LABS: MN% 59.6 %; PMN% 40.4 %; RBC Pleural Fluid 0.003 X10*3/uL; WBC Pleural Fluid 4.855 X10*3/uL
[2022-03-12] MEDS: Lidocaine HCl 1 % MPF 5 ML VIAL SUBCUT (12:05)
[2022-03-12 12:08] VITALS: BP 102/58; PULSE 84; RESP 18; TEMP 36.2; O2SAT 97
[2022-03-12 12:22] LABS: Glucose, Whole Blood 141 mg/dL (60-115)
[2022-03-12 13:11] LABS: BF Shift QC OK YES; Basophils Pleural Fluid 0 %; Eosinophils Pleural Fluid 1 %; Lymphocytes Pleural Fluid 2 %; Man Diluent Bkgrd OK YES; Monocytes Pleural Fluid 2 %; Neutrophils Pleural Fluid 33 %; Other Cells Plerual Fl 62 %
[2022-03-12 13:30] VITALS: BP 105/58; PULSE 71; RESP 18; O2SAT 98
[2022-03-12] MEDS: cefTRIAXone sodium 1 GM in 0.9 % Sodium Chloride 50 ML IV (13:40)
--- NOTE | 2022-03-12 15:08 | MHC.CM.PN ---
THORACENTISIS TODAY LUNG BIOPSY FRIDAY PLAN IS RETURN TO [facility] [address] WHEN STABLE
--- NOTE | 2022-03-12 15:15 | HO.PM.IMPN ---
Subjective Subjective Date of Service: 03/12/22 Interval History: Still on O2 8L. Denies cough or dyspnea History limited by vascular dementia Review of Systems Review of Systems: Yes all other systems are reviewed and are negative Physical Exam Vital Signs: Vital Signs: Last Vital Signs Temp 97.1 F 03/12/22 12:08 Pulse 71 03/12/22 13:30 Resp 18 03/12/22 13:30 BP 105/58 L 03/12/22 13:30 Pulse Ox 98 03/12/22 13:30 BMI result Body Mass Index 28.3 Gen: in no acute distress HEENT: sclera anicteric, moist mucus membranes Neck: supple Lungs: decreased air entry L side Heart: regular rate and rhythm, no murmurs Abd: soft, non-tender, non-distended Ext: no edema Skin: warm/well-perfused Neuro: alert, expressive aphasia, R hemiparesis Objective Data Active Medications Acetaminophen (Acetaminophen 325 Mg Tablet) 650 mg PO Q6H PRN PRN Reason: Pain, Mild (Pain Scale 1-3) Amlodipine Besylate (Amlodipine Besylate 5 Mg Tablet) 5 mg PO DAILY [facility]; Protocol Last Admin: 03/12/22 09:09 Dose: 5 mg Documented by: OSMANI Aspirin (Aspirin 81 Mg Tab.Chew) 81 mg PO DAILY [facility] Last Admin: 03/12/22 09:09 Dose: 81 mg Documented by: OSMANI Atorvastatin Calcium (Atorvastatin Calcium 40 Mg Tablet) 40 mg PO DAILY [facility] Last Admin: 03/12/22 09:09 Dose: 40 mg Documented by: OSMANI Dextrose (Dextrose 50 % 25 Gm/50 Ml Syringe) 25 gm IVPUSH Q15M PRN; Protocol PRN Reason: per Hypoglycemia Standing Ord. Diazepam (Diazepam 5 Mg Tablet) 5 mg PO TID [facility] Last Admin: 03/12/22 13:40 Dose: 5 mg Documented by: OSMANI Doxazosin Mesylate (Doxazosin Mesylate 2 Mg Tablet) 8 mg PO BEDTIME [facility]; Protocol Last Admin: 03/11/22 22:40 Dose: 8 mg Documented by: YAMILA Finasteride (Finasteride 5 Mg Tablet) 5 mg PO DAILY [facility] Last Admin: 03/12/22 09:08 Dose: 5 mg Documented by: OSMANI Glucose (Glucose Gel 15 Gm Gel..Gram.) 15 gm PO Q15M PRN; Protocol PRN Reason: per Hypoglycemia Standing Ord. Ceftriaxone Sodium 1 gm/ (Sodium Chloride) 50 mls @ 100 mls/hr IV Q24H [facility] Last Infusion: 03/12/22 14:18 Dose: 0 mls/hr Documented by: OSMANI Insulin Human Lispro (Insulin Lispro 100 Unit/Ml 3 Ml Vial) 0 unit SUBCUT QIDACHS [facility]; Protocol Last Admin: 03/12/22 12:43 Dose: Not Given Documented by: OSMANI Non-Admin Reason: No Insulin Coverage Losartan Potassium (Losartan Potassium 50 Mg Tablet) 100 mg PO DAILY [facility]; Protocol Last Admin: 03/12/22 09:08 Dose: 100 mg Documented by: OSMANI Magnesium Oxide (Magnesium Oxide 400 Mg Tablet) 400 mg PO BIDPC [facility] Last Admin: 03/12/22 09:08 Dose: 400 mg Documented by: OSMANI Perphenazine (Perphenazine 4 Mg Tablet) 4 mg PO TID [facility] Last Admin: 03/12/22 13:40 Dose: 4 mg Documented by: OSMANI Pharmacy Consult (Consult Rx Perform Med Rec) 1 each MISCELLANE ONCE PRN PRN Reason: Consult order Sodium Chloride (0.9 % Sodium Chloride Flush 3 Ml Syringe) 3 ml IVFLUSH QSHIFT [facility] Last Admin: 03/12/22 09:09 Dose: 3 ml Documented by: OSMANI Vitamin D (Cholecalciferol (Vitamin D3) 25 Mcg Tablet) 50 mcg PO DAILY [facility] Last Admin: 03/12/22 09:08 Dose: 50 mcg Documented by: OSMANI Labs CBC & Chem 7: 03/11/22 06:12 03/11/22 06:12 Labs: Laboratory Results - last 24 hr 03/11/22 03/11/22 03/12/22 16:31 20:33 07:24 POC Glucose 90 126 H 125 H Pleural WBC Pleural RBC Pleural Neutrophils Pleural Lymphocytes Pleural Monocytes Pleural Eosinophils Pleural Basophils Pleural Other Cells 03/12/22 03/12/22 11:25 12:11 POC Glucose 141 H Pleural WBC 4.855 Pleural RBC 0.003 Pleural Neutrophils 33 Pleural Lymphocytes 2 Pleural Monocytes 2 Pleural Eosinophils 1 Pleural Basophils 0 Pleural Other Cells 62 Microbiology Microbiology Results: Microbiology 03/12/22 11:25 Gram Stain - Final Thoracentesis Fluid 03/10/22 11:35 Blood Culture - Preliminary Blood - Venous No growth after 48 hours. 03/10/22 07:19 Blood Culture - Preliminary Blood - Venous No growth after 48 hours. 03/10/22 07:14 Blood Culture - Preliminary Blood - Venous No growth after 48 hours. 03/10/22 13:31 Blood Culture - Preliminary Blood - Venous No growth after 24 hours. Assessment and Plan (1) Diabetes mellitus: Status: Acute Plan d#3 76yo M resident of [facility] [LTC] presenting with dyspnea, found to be hypoxic with L pleural effusion, postobstructive pneumonia with underlying lung mass # acute hypoxic resp failure - wean O2 as tolerated # pleural effusion - thoracentesis today, follow fluid hematology/chemistry/pathology # lung mass - CT-guided biopsy 03/15 [due to ASA given 03/11], suspect malignancy # postobstructive PNA - d#3 ceftriaxone, follow BCx + pleural fluid Cx # AF - ?unknown if new- will try to get records- order telemetry. not on AC # HTN - amlodipine # hx CVA - conitnue statin - ASA on hold for lung bx # BPH - doxazosin + finasteride # DM2 - correction-dose lispro # mood disorder - continue perphenazine + diazepam # VTE ppx - LMWH In my clinical judgment, the patient requires continued hospitalization for the following reasons: hypoxia, thoracentesis, IV ABX< lung biopsy Quality Stroke Does the patient have a stroke diagnosis?: No VTE Prior VTE?: No VTE Risk Level:: Medical - moderate - high VTE Device Contraindication: Treatment Not Indicated VTE Drug Contraindication: N/A - Med Ordered
[2022-03-12 15:31] VITALS: BP 90/47; PULSE 77; RESP 16; TEMP 37; O2SAT 98
[2022-03-12 16:18] LABS: Glucose, Whole Blood 277 mg/dL (60-115)
[2022-03-12] MEDS: Insulin Lispro 100 UNIT/ML 3 ML VIAL SUBCUT (16:46)
--- NOTE | 2022-03-12 17:12 | PC.NURSE ---
left back thoracentesis drsg CDI,no swelling,no crepitus
[2022-03-12] MEDS: Acetaminophen 325 MG TABLET 650 MG PO (19:30)
[2022-03-12 21:08] LABS: Glucose, Whole Blood 140 mg/dL (60-115)
[2022-03-12] MEDS: Doxazosin Mesylate 2 MG TABLET 8 MG PO (23:11)
[2022-03-13] VITALS: BP 100/62; PULSE 98; RESP 19; TEMP 36.6; O2SAT 95
[2022-03-13] MEDS: Acetaminophen 325 MG TABLET 650 MG PO ×2 (02:28→19:12)
--- NOTE | 2022-03-13 05:03 | PC.NURSE ---
Call placed to [facility] [employer] at approx., [id number] for patients cardiac rhythm reading and v belt builder stated patient was showing a fib which is noted to be different from previous of SR with frequent PAC's. pt history report does indicate hx of a fib. hospitalist on duty was informed and no new orders at this time. patient asleep vitals 100/62-98.19-97.9 and o2 sat 95-98% on 8 liters arzola cannula. will cont to monitor closely. prior pt requested and given po APAP at 0235 for generalized discomfort with good effect.
[2022-03-13 05:58] LABS: Hematocrit 33.3 % (42.0-52.0); Hemoglobin 10.8 g/dl (14.0-18.0); Mean Corpuscular HGB Conc 32.4 g/dl (31.0-36.0); Mean Corpuscular Hemoglobin 29.1 pg (27.0-33.0); Mean Corpuscular Volume 89.8 fL (80.0-98.0); Mean Platelet Volume 9.1 fL (9.4-12.4); Platelet Count 216 X10*3/uL (160-400); Red Blood Count 3.71 X10*6/uL (4.60-5.80); Red Cell Distribution Width 13.1 % (11.0-16.0); White Blood Count 8.7 X10*3/uL (4.8-10.8)
[2022-03-13 05:59] LABS: VBG Base Excess 10.1 mmol/L; VBG HCO3 35 mmol/L (22-26); VBG pCO2 52 mmHg; VBG pH 7.44 (7.32-7.43); VBG pO2 88 mmHg
[2022-03-13 06:00] LABS: Venous Blood Gas Refer to POC result
[2022-03-13 06:24] LABS: Anion Gap 12 (12-20); Blood Urea Nitrogen 34 mg/dL (9-16); Calcium 9.3 mg/dL (8.4-10.2); Carbon Dioxide 32 mmol/L (22-29); Chloride 99 mmol/L (96-108); Creatinine Clr Calc Pharmacy 68.6; Estimated Glomerular Filt Rate > 60; Glucose Random 144 mg/dL (60-115); Potassium 4.9 mmol/L (3.3-5.1); Sodium 138 mmol/L (135-145)
[2022-03-13 07:30] LABS: Procalcitonin 0.05 ng/mL
[2022-03-13 07:53] LABS: Glucose, Whole Blood 138 mg/dL (60-115)
[2022-03-13 08:00] VITALS: BP 110/64; PULSE 77; RESP 16; TEMP 36.6; O2SAT 96
[2022-03-13 09:10] LABS: Albumin Pleural Fluid 2.5 GM/DL; Glucose Pleural Fluid 90 MG/DL; LDH Pleural Fluid 509 U/L; Total Protein Pleural Fluid 4.1 GM/DL
[2022-03-13] MEDS: Cholecalciferol (Vitamin D3) 25 MCG TABLET 50 MCG PO (09:11)
[2022-03-13] MEDS: Perphenazine 4 MG TABLET PO ×3 (09:11→22:31)
[2022-03-13] MEDS: Aspirin 81 MG TAB.CHEW PO (09:11)
[2022-03-13] MEDS: Magnesium Oxide 400 MG TABLET PO ×2 (09:11→16:41)
[2022-03-13] MEDS: Atorvastatin Calcium 40 MG TABLET PO (09:11)
[2022-03-13] MEDS: amLODIPine Besylate 5 MG TABLET PO (09:11)
[2022-03-13] MEDS: Losartan Potassium 50 MG TABLET 100 MG PO (09:11)
[2022-03-13] MEDS: 0.9 % Sodium Chloride Flush 3 ML SYRINGE IVFLUSH ×2 (09:11→16:41)
[2022-03-13] MEDS: Finasteride 5 MG TABLET PO (09:12)
[2022-03-13] MEDS: diazePAM 5 MG TABLET PO ×3 (09:12→22:31)
[2022-03-13 11:10] LABS: Glucose, Whole Blood 241 mg/dL (60-115)
[2022-03-13] MEDS: Insulin Lispro 100 UNIT/ML 3 ML VIAL SUBCUT ×2 (11:39→22:31)
--- NOTE | 2022-03-13 11:57 | P.PNIM_ITS ---
Subjective Subjective Date of Service: 03/13/22 Interval History: Denies dyspnea O2 requirement down to 6L via SD Review of Systems Review of Systems: Yes all other systems are reviewed and are negative Physical Exam Vital Signs: Vital Signs: Last Vital Signs Temp 97.8 F 03/13/22 08:00 Pulse 77 03/13/22 08:00 Resp 16 03/13/22 08:00 BP 110/64 03/13/22 08:00 Pulse Ox 96 03/13/22 08:00 BMI result Body Mass Index 28.3 Gen: in no acute distress HEENT: sclera anicteric, moist mucus membranes Neck: supple Lungs: decreased air entry L side Heart: irregularly irregular no murmurs Abd: soft, non-tender, non-distended Ext: no edema Skin: warm/well-perfused Neuro: alert, expressive aphasia, R hemiparesis Objective Data Active Medications Acetaminophen (Acetaminophen 325 Mg Tablet) 650 mg PO Q6H PRN PRN Reason: Pain, Mild (Pain Scale 1-3) Last Admin: 03/13/22 02:28 Dose: 650 mg Documented by: JEANNETTE Amlodipine Besylate (Amlodipine Besylate 5 Mg Tablet) 5 mg PO DAILY [facility]; Protocol Last Admin: 03/13/22 09:11 Dose: 5 mg Documented by: SAMIR Aspirin (Aspirin 81 Mg Tab.Chew) 81 mg PO DAILY [facility] Last Admin: 03/13/22 09:11 Dose: 81 mg Documented by: SAMIR Atorvastatin Calcium (Atorvastatin Calcium 40 Mg Tablet) 40 mg PO DAILY [facility] Last Admin: 03/13/22 09:11 Dose: 40 mg Documented by: SAMIR Dextrose (Dextrose 50 % 25 Gm/50 Ml Syringe) 25 gm IVPUSH Q15M PRN; Protocol PRN Reason: per Hypoglycemia Standing Ord. Diazepam (Diazepam 5 Mg Tablet) 5 mg PO TID [facility] Last Admin: 03/13/22 09:12 Dose: 5 mg Documented by: SAMIR Doxazosin Mesylate (Doxazosin Mesylate 2 Mg Tablet) 8 mg PO BEDTIME [facility]; Protocol Last Admin: 03/12/22 23:11 Dose: 8 mg Documented by: SIMONE Finasteride (Finasteride 5 Mg Tablet) 5 mg PO DAILY [facility] Last Admin: 03/13/22 09:12 Dose: 5 mg Documented by: SAMIR Glucose (Glucose Gel 15 Gm Gel..Gram.) 15 gm PO Q15M PRN; Protocol PRN Reason: per Hypoglycemia Standing Ord. Ceftriaxone Sodium 1 gm/ (Sodium Chloride) 50 mls @ 100 mls/hr IV Q24H [facility] Last Infusion: 03/12/22 14:18 Dose: 0 mls/hr Documented by: OSAMNI Insulin Human Lispro (Insulin Lispro 100 Unit/Ml 3 Ml Vial) 0 unit SUBCUT QIDACHS [facility]; Protocol Last Admin: 03/13/22 11:39 Dose: 4 unit Documented by: SAMIR Losartan Potassium (Losartan Potassium 50 Mg Tablet) 100 mg PO DAILY [facility]; Protocol Last Admin: 03/13/22 09:11 Dose: 100 mg Documented by: SAIMR Magnesium Oxide (Magnesium Oxide 400 Mg Tablet) 400 mg PO BIDPC [facility] Last Admin: 03/13/22 09:11 Dose: 400 mg Documented by: SAMIR Perphenazine (Perphenazine 4 Mg Tablet) 4 mg PO TID [facility] Last Admin: 03/13/22 09:11 Dose: 4 mg Documented by: SAMIR Pharmacy Consult (Consult Rx Perform Med Rec) 1 each MISCELLANE ONCE PRN PRN Reason: Consult order Sodium Chloride (0.9 % Sodium Chloride Flush 3 Ml Syringe) 3 ml IVFLUSH QSHIFT [facility] Last Admin: 03/13/22 09:11 Dose: 3 ml Documented by: SAMIR Vitamin D (Cholecalciferol (Vitamin D3) 25 Mcg Tablet) 50 mcg PO DAILY [facility] Last Admin: 03/13/22 09:11 Dose: 50 mcg Documented by: SAMIR Labs CBC & Chem 7: 03/13/22 05:46 03/13/22 05:46 Labs: Laboratory Results - last 24 hr 03/12/22 03/12/22 03/12/22 11:25 11:25 12:11 MCV MCH MCHC RDW Plt Count MPV Absolute Nucleated RBC Nucleated RBC % (auto) VBG pH VBG pCO2 VBG pO2 VBG HCO3 VBG O2 Saturation VBG Base Excess Anion Gap Estim Creat Clear Calc Estimated GFR POC Glucose 141 H Random Glucose Calcium Procalcitonin Pleural WBC 4.855 Pleural RBC 0.003 Pleural Neutrophils 33 Pleural Lymphocytes 2 Pleural Monocytes 2 Pleural Eosinophils 1 Pleural Basophils 0 Pleural Other Cells 62 Pleural Total Protein 4.1 Pleural Albumin 2.5 Pleural LDH 509 Pleural Glucose 90 03/12/22 03/12/22 03/13/22 16:10 21:04 05:46 MCV 89.8 MCH 29.1 MCHC 32.4 RDW 13.1 Plt Count 216 MPV 9.1 L Absolute Nucleated RBC 0.000 Nucleated RBC % (auto) 0.0 VBG pH VBG pCO2 VBG pO2 VBG HCO3 VBG O2 Saturation VBG Base Excess Anion Gap Estim Creat Clear Calc Estimated GFR POC Glucose 277 H 140 H Random Glucose Calcium Procalcitonin Pleural WBC Pleural RBC Pleural Neutrophils Pleural Lymphocytes Pleural Monocytes Pleural Eosinophils Pleural Basophils Pleural Other Cells Pleural Total Protein Pleural Albumin Pleural LDH Pleural Glucose 03/13/22 03/13/22 03/13/22 05:46 05:46 05:51 MCV MCH MCHC RDW Plt Count MPV Absolute Nucleated RBC Nucleated RBC % (auto) VBG pH 7.44 H VBG pCO2 52 VBG pO2 88 VBG HCO3 35 H VBG O2 Saturation 97.0 VBG Base Excess 10.1 Anion Gap 12 Estim Creat Clear Calc 68.6 Estimated GFR > 60 POC Glucose Random Glucose 144 H Calcium 9.3 Procalcitonin 0.05 Pleural WBC Pleural RBC Pleural Neutrophils Pleural Lymphocytes Pleural Monocytes Pleural Eosinophils Pleural Basophils Pleural Other Cells Pleural Total Protein Pleural Albumin Pleural LDH Pleural Glucose 03/13/22 03/13/22 07:46 11:02 MCV MCH MCHC RDW Plt Count MPV Absolute Nucleated RBC Nucleated RBC % (auto) VBG pH VBG pCO2 VBG pO2 VBG HCO3 VBG O2 Saturation VBG Base Excess Anion Gap Estim Creat Clear Calc Estimated GFR POC Glucose 138 H 241 H Random Glucose Calcium Procalcitonin Pleural WBC Pleural RBC Pleural Neutrophils Pleural Lymphocytes Pleural Monocytes Pleural Eosinophils Pleural Basophils Pleural Other Cells Pleural Total Protein Pleural Albumin Pleural LDH Pleural Glucose Impressions Thoracentesis Ultrasound 03/12/22 11:45 IMPRESSION: Successful ultrasound-guided left thoracentesis performed with approximately 1.1 L of yellowish fluid drained from the left pleural space. Chest X-Ray 03/12/22 11:48 IMPRESSION: Status post left thoracentesis there is no visible pneumothorax or residual left pleural effusion. There is left lower lobe atelectasis. Minimal atelectatic changes are also seen in the right lung base. Microbiology Microbiology Results: Microbiology 03/12/22 11:25 Gram Stain - Final Thoracentesis Fluid Anaerobic Culture - Preliminary No growth to date. Body Fluid Culture - Preliminary No growth to date. 03/10/22 13:31 Blood Culture - Preliminary Blood - Venous No growth after 48 hours. 03/10/22 11:35 Blood Culture - Preliminary Blood - Venous No growth after 48 hours. 03/10/22 07:19 Blood Culture - Preliminary Blood - Venous No growth after 48 hours. 03/10/22 07:14 Blood Culture - Preliminary Blood - Venous No growth after 48 hours. Assessment and Plan (1) Diabetes mellitus: Status: Acute Plan d#4 76yo M resident of [facility] [LTC] presenting with dyspnea, found to be hypoxic with L pleural effusion, postobstructive pneumonia with underlying lung mass # acute hypoxic resp failure - continue to wean O2 as tolerated # pleural effusion - thoracentesis done 03/12/22 with removal of 1.1L of exudative pleural fluid, cytology + microbiology pending, suspect malignant # lung mass - CT-guided biopsy 03/15 [due to ASA given 03/11], suspect malignancy # postobstructive PNA - d#4 ceftriaxone, follow BCx + pleural fluid Cx # pancreatic cyst - dedicated CT A/P # AF, chronic - not on AC. rate-controlled. # HTN - amlodipine # hx CVA - conitnue statin - ASA on hold for lung bx # BPH - doxazosin + finasteride # DM2 - correction-dose lispro # mood disorder - continue perphenazine + diazepam # VTE ppx - LMWH In my clinical judgment, the patient requires continued hospitalization for the following reasons: hypoxia, IV ABX, lung biopsy Quality Stroke Does the patient have a stroke diagnosis?: No VTE Prior VTE?: No VTE Risk Level:: Medical - moderate - high VTE Device Contraindication: Treatment Not Indicated VTE Drug Contraindication: N/A - Med Ordered
--- NOTE | 2022-03-13 12:07 | MHC.CM.PN ---
EMR REVIEWED, PER HOSPITALIST PT CONT'S TO ASPIRATE, REMAINS ON O2, ANTIC PT WILL BE STABLE FOR LUNG BIOPSY FRIDAY, ANTIC WILL BE ABLE TO RETURN TO [facility] FRIDAY.
[2022-03-13] MEDS: cefTRIAXone sodium 1 GM in 0.9 % Sodium Chloride 50 ML IV (13:21)
[2022-03-13 15:13] VITALS: BP 110/52; PULSE 79; RESP 18; TEMP 36.8; O2SAT 93
[2022-03-13 16:07] LABS: Glucose, Whole Blood 149 mg/dL (60-115)
[2022-03-13 19:59] LABS: Glucose, Whole Blood 174 mg/dL (60-115)
[2022-03-13] MEDS: Doxazosin Mesylate 2 MG TABLET 8 MG PO (22:31)
[2022-03-13 23:27] VITALS: BP 100/60; PULSE 72; RESP 18; TEMP 36.8; O2SAT 96
[2022-03-14] MEDS: 0.9 % Sodium Chloride Flush 3 ML SYRINGE IVFLUSH ×3 (01:08→17:11)
[2022-03-14] MEDS: Acetaminophen 325 MG TABLET 650 MG PO (04:51)
--- NOTE | 2022-03-14 07:00 | CA_ITS ---
Transthoracic Echocardiogram Patient (Last, First, Middle): Jose C Steward, Gender: Male Date of : 1945 Age: 76 Procedure Date: 03/14/2022 Procedure Type: Transthoracic Echocardiogram Location: S3W Height: 170.18 cm Weight: 82.1 kg BSA: 1.94 m2 Heart Rate: bpm BP: 102 / 58 mmHg Continuous Process Machine Operator: JEREMÍAS Referring MD: Sandra Ozuna MD Tank Hoop Bender: Kanu Coates MD Symptoms: af Study Quality: Technically Difficult/CONTRAST ECG Rhythm: Atrial Fibrillation Conclusions: - 1. Technically very limited study despite use of contrast agent 2. Left ventricular function is difficult to estimate but appears on some views to be greater than 50% Findings Procedure Information Contrast agent, definity, is being given per protocol without apparent complications. Left Ventricle The left ventricle was not well visualized. Regional wall motion abnormalities can not be excluded due to suboptimal endocardial definition. Diastolic function is indeterminate on the basis of available data. LV systolic function is difficult to estimate but appears to be greater than 50% on some views Right Ventricle The right ventricle was not well visualized. Atria The left atrium was not well visualized. Interatrial shunt cannot be excluded. The right atrium was not well visualized. Aortic Valve The aortic valve was not well visualized. There is no aortic valve stenosis. Mitral Valve The mitral valve was not well visualized. Pulmonic Valve The pulmonic valve was not well visualized. Tricuspid Valve The tricuspid valve was not well visualized. Tricuspid regurgitation envelope is inadequate for calculation of right ventricular systolic pressure. Great Vessels The aorta was not well visualized. The pulmonary artery was not well visualized. Venous The inferior vena cava is normal in size and collapses greater than 50% with inspiration. Pericardium/Pleural The pericardium was not well visualized. Prior Study Comparison No prior study available for comparison. Measurements 2D Linear Measurements IVSd: 0.70 0.6-0.9/0.6-1.0 cm LVIDd: 4.62 3.9-5.3/4.2-5.9 cm LVIDd Index: 2.38 2.4-3.2/2.2-3.1 cm/m2 LVIDs: 3.37 2.0-3.6 cm LVPWd: 0.84 0.7-1.1 cm LA Diam: 3.00 2.7-3.8/3.0-4.0 cm LAIDs Index: 1.55 1.5-2.3 cm/m2 LV Mass: 139.83 67-162/88-224 g LV Mass Index: 72.08 43-95/49-115 g/m2 LVOT Diam: 1.90 3.0+(-)1.3 cm Aortic Valve AoV Pk Nick: 1.01 AoV Mn Nick: 0.68 AoV VTI: 0.19 AoV Pk Grad: 4.00 Aov Mn Grad: 2.00 SHAHZAD Cont.VTI: 2.66 LVOT LVOT Pk Nick: 1.03 LVOT Mn Nick: 0.62 LVOT VTI: 0.18 LVOT Pk Grad: 4.00 LVOT Mn Grad: 2.00 LVOT Diam: 1.90 LVOT Area: 2.84 Tricuspid Valve RA Press: 8.00 Great Vessels Aorta Sinus of Valsalva: 3.60 2.0-3.[address] Ridge: 3.08 1.7-3.4 cm Ao Asc: 3.50 2.1-3.4 cm Updated in Other Vendor System with Status of Final Kanu Coates MD electronically signed on 03/15/2022 8:43:43 AM with status of Final
[2022-03-14 07:19] LABS: Glucose, Whole Blood 144 mg/dL (60-115)
[2022-03-14 07:39] VITALS: BP 112/64; PULSE 75; RESP 17; TEMP 36.4; O2SAT 94
[2022-03-14] MEDS: Perphenazine 4 MG TABLET PO ×3 (10:50→20:40)
[2022-03-14] MEDS: diazePAM 5 MG TABLET PO ×3 (10:51→20:40)
[2022-03-14] MEDS: Finasteride 5 MG TABLET PO (10:51)
[2022-03-14] MEDS: amLODIPine Besylate 5 MG TABLET PO (10:51)
[2022-03-14] MEDS: Losartan Potassium 50 MG TABLET 100 MG PO (10:51)
[2022-03-14] MEDS: Cholecalciferol (Vitamin D3) 25 MCG TABLET 50 MCG PO (10:51)
[2022-03-14] MEDS: Magnesium Oxide 400 MG TABLET PO ×2 (10:51→17:11)
[2022-03-14] MEDS: Atorvastatin Calcium 40 MG TABLET PO (10:51)
[2022-03-14 11:29] LABS: Glucose, Whole Blood 248 mg/dL (60-115)
[2022-03-14] MEDS: Insulin Lispro 100 UNIT/ML 3 ML VIAL SUBCUT ×2 (11:45→20:39)
--- NOTE | 2022-03-14 12:23 | MHC.CM.PN ---
PLAN IS FOR LUNG BIOPSY THURSDAY 03/15 [facility] UPDATED WITH CLINICALS AND PLAN.
--- NOTE | 2022-03-14 12:58 | HO.PM.IMPN ---
Subjective Subjective Date of Service: 03/14/22 Interval History: O2 requirement down to 5L Dyspnea improved No cough No fever Review of Systems Review of Systems: Yes all other systems are reviewed and are negative Physical Exam Vital Signs: Vital Signs: Last Vital Signs Temp 97.6 F 03/14/22 07:39 Pulse 75 03/14/22 07:39 Resp 17 03/14/22 07:39 BP 112/64 03/14/22 07:39 Pulse Ox 94 03/14/22 07:39 BMI result Body Mass Index 28.3 Gen: in no acute distress HEENT: sclera anicteric, moist mucus membranes Neck: supple Lungs: decreased air entry L side Heart: irregularly irregular no murmurs Abd: soft, non-tender, non-distended Ext: no edema Skin: warm/well-perfused Neuro: alert, moderate expressive aphasia, R hemiparesis Objective Data Active Medications Acetaminophen (Acetaminophen 325 Mg Tablet) 650 mg PO Q6H PRN PRN Reason: Pain, Mild (Pain Scale 1-3) Last Admin: 03/14/22 04:51 Dose: 650 mg Documented by: JULIUS Amlodipine Besylate (Amlodipine Besylate 5 Mg Tablet) 5 mg PO DAILY [facility]; Protocol Last Admin: 03/14/22 10:51 Dose: 5 mg Documented by: OSMANI Aspirin (Aspirin 81 Mg Tab.Chew) 81 mg PO DAILY [facility] Last Admin: 03/14/22 10:52 Dose: Not Given Documented by: OSMANI Non-Admin Reason: hold per Atorvastatin Calcium (Atorvastatin Calcium 40 Mg Tablet) 40 mg PO DAILY [facility] Last Admin: 03/14/22 10:51 Dose: 40 mg Documented by: OSMANI Dextrose (Dextrose 50 % 25 Gm/50 Ml Syringe) 25 gm IVPUSH Q15M PRN; Protocol PRN Reason: per Hypoglycemia Standing Ord. Diazepam (Diazepam 5 Mg Tablet) 5 mg PO TID [facility] Last Admin: 03/14/22 10:51 Dose: 5 mg Documented by: OSMANI Doxazosin Mesylate (Doxazosin Mesylate 2 Mg Tablet) 8 mg PO BEDTIME [facility]; Protocol Last Admin: 03/13/22 22:31 Dose: 8 mg Documented by: YAMILA Finasteride (Finasteride 5 Mg Tablet) 5 mg PO DAILY [facility] Last Admin: 03/14/22 10:51 Dose: 5 mg Documented by: OSMANI Glucose (Glucose Gel 15 Gm Gel..Gram.) 15 gm PO Q15M PRN; Protocol PRN Reason: per Hypoglycemia Standing Ord. Ceftriaxone Sodium 1 gm/ (Sodium Chloride) 50 mls @ 100 mls/hr IV Q24H [facility] Last Infusion: 03/13/22 13:52 Dose: 0 mls/hr Documented by: OSMANI Insulin Human Lispro (Insulin Lispro 100 Unit/Ml 3 Ml Vial) 0 unit SUBCUT QIDACHS [facility]; Protocol Last Admin: 03/14/22 11:45 Dose: 4 unit Documented by: SAMIR Losartan Potassium (Losartan Potassium 50 Mg Tablet) 100 mg PO DAILY [facility]; Protocol Last Admin: 03/14/22 10:51 Dose: 100 mg Documented by: OSMANI Magnesium Oxide (Magnesium Oxide 400 Mg Tablet) 400 mg PO BIDPC [facility] Last Admin: 03/14/22 10:51 Dose: 400 mg Documented by: OSMANI Perphenazine (Perphenazine 4 Mg Tablet) 4 mg PO TID [facility] Last Admin: 03/14/22 10:50 Dose: 4 mg Documented by: OSMANI Pharmacy Consult (Consult Rx Perform Med Rec) 1 each MISCELLANE ONCE PRN PRN Reason: Consult order Sodium Chloride (0.9 % Sodium Chloride Flush 3 Ml Syringe) 3 ml IVFLUSH QSHIFT [facility] Last Admin: 03/14/22 10:51 Dose: 3 ml Documented by: OSMANI Vitamin D (Cholecalciferol (Vitamin D3) 25 Mcg Tablet) 50 mcg PO DAILY [facility] Last Admin: 03/14/22 10:51 Dose: 50 mcg Documented by: OSMANI Labs CBC & Chem 7: 03/13/22 05:46 03/13/22 05:46 Labs: Laboratory Results - last 24 hr 03/13/22 03/13/22 03/14/22 15:35 19:39 07:14 POC Glucose 149 H 174 H 144 H 03/14/22 11:26 POC Glucose 248 H Microbiology Microbiology Results: Microbiology 03/12/22 11:25 Gram Stain - Final Thoracentesis Fluid Anaerobic Culture - Preliminary No growth to date. Body Fluid Culture - Final No growth after 2 days Assessment and Plan (1) Diabetes mellitus: Status: Acute Plan d#5 76yo M resident of [facility] [LTC] presenting with dyspnea, found to be hypoxic with L pleural effusion, postobstructive pneumonia with underlying lung mass # acute hypoxic resp failure - continue to wean O2 as tolerated # pleural effusion - thoracentesis done 03/12/22 with removal of 1.1L of exudative pleural fluid, cytology + microbiology pending, suspect malignant # lung mass - CT-guided biopsy tomorrow [due to ASA given 03/11], suspect malignancy # postobstructive PNA - d#5 ceftriaxone, follow BCx + pleural fluid Cx # pancreatic cyst - dedicated CT A/P results pending # AF, chronic - not on AC. rate-controlled. # HTN - amlodipine # hx CVA - conitnue statin - ASA on hold for lung bx # BPH - doxazosin + finasteride # DM2 - correction-dose lispro # mood disorder - continue perphenazine + diazepam # VTE ppx - SCDs In my clinical judgment, the patient requires continued hospitalization for the following reasons: hypoxia, IV ABX, lung biopsy I updated the pt's daughter Trupti Perez at bedside Quality Stroke Does the patient have a stroke diagnosis?: No VTE Prior VTE?: No VTE Risk Level:: Medical - moderate - high VTE Device Contraindication: Treatment Not Indicated VTE Drug Contraindication: N/A - Med Ordered
[2022-03-14] MEDS: cefTRIAXone sodium 1 GM in 0.9 % Sodium Chloride 50 ML IV (14:24)
[2022-03-14 14:31] VITALS: O2SAT 93
[2022-03-14 16:00] VITALS: BP 116/68; PULSE 83; RESP 18; TEMP 37; O2SAT 98
[2022-03-14 16:30] LABS: Glucose, Whole Blood 146 mg/dL (60-115)
[2022-03-14 19:11] VITALS: BP 122/55; PULSE 70; RESP 18; TEMP 36.8; O2SAT 96
[2022-03-14 20:12] LABS: Glucose, Whole Blood 180 mg/dL (60-115)
[2022-03-14] MEDS: Doxazosin Mesylate 2 MG TABLET 8 MG PO (20:39)
[2022-03-14] MEDS: Albuterol/Iprat 2.5/0.5MG 3 ML AMPUL.NEB INHALE (23:13)
[2022-03-14 23:14] VITALS: PULSE 71; RESP 22; O2SAT 94
[2022-03-14 23:52] VITALS: BP 125/60; PULSE 74; RESP 18; TEMP 36.8; O2SAT 94
[2022-03-15] MEDS: 0.9 % Sodium Chloride Flush 3 ML SYRINGE IVFLUSH ×4 (01:07→23:55)
[2022-03-15 06:08] LABS: Hematocrit 33.7 % (42.0-52.0); Hemoglobin 11.2 g/dl (14.0-18.0); Mean Corpuscular HGB Conc 33.2 g/dl (31.0-36.0); Mean Corpuscular Volume 90.3 fL (80.0-98.0); Mean Platelet Volume 9.7 fL (9.4-12.4); Platelet Count 212 X10*3/uL (160-400); Red Blood Count 3.73 X10*6/uL (4.60-5.80); Red Cell Distribution Width 13.2 % (11.0-16.0); White Blood Count 8.3 X10*3/uL (4.8-10.8)
[2022-03-15 06:12] LABS: INTERNATIONAL NORM RATIO 1.1 (0.9-1.1); Prothrombin Time 12.6 SEC (9.9-13.0)
[2022-03-15 06:15] LABS: Partial Thromboplastin Time 30.1 SEC (24.1-38.0)
[2022-03-15 06:27] LABS: Anion Gap 14 (12-20); Blood Urea Nitrogen 28 mg/dL (9-16); Calcium 9.3 mg/dL (8.4-10.2); Carbon Dioxide 31 mmol/L (22-29); Chloride 97 mmol/L (96-108); Creatinine Clr Calc Pharmacy 76.1; Estimated Glomerular Filt Rate > 60; Glucose Random 140 mg/dL (60-115); Potassium 4.8 mmol/L (3.3-5.1); Sodium 137 mmol/L (135-145)
[2022-03-15 06:48] LABS: Procalcitonin 0.05 ng/mL
[2022-03-15 07:30] VITALS: BP 141/62; PULSE 78; RESP 16; TEMP 37.1; O2SAT 91
[2022-03-15 07:41] LABS: Glucose, Whole Blood 125 mg/dL (60-115)
[2022-03-15 09:49] VITALS: BP 127/70; PULSE 79; RESP 22; TEMP 36.8; O2SAT 93
--- NOTE | 2022-03-15 09:52 | P.PNIM_ITS ---
Subjective Subjective Date of Service: 03/15/22 Interval History: O2 requirement down to 4L Dyspnea improved No cough No fever Review of Systems no fever no chills no sob Physical Exam Vital Signs: Vital Signs: Last Vital Signs Temp 98.7 F 03/15/22 07:30 Pulse 78 03/15/22 07:30 Resp 16 03/15/22 07:30 BP 141/62 H 03/15/22 07:30 Pulse Ox 91 L 03/15/22 07:30 BMI result Body Mass Index 28.3 Const: Other: Gen: in no acute distress, difficult to understand due to aphasia HEENT: sclera anicteric, moist mucus membranes Neck: supple Lungs: decreased air entry L side Heart: irregularly irregular no murmurs Abd: soft, non-tender, non-distended Ext: no edema Skin: warm/well-perfused Neuro: alert, moderate expressive aphasia, R hemiparesis Objective Data Active Medications Acetaminophen (Acetaminophen 325 Mg Tablet) 650 mg PO Q6H PRN PRN Reason: Pain, Mild (Pain Scale 1-3) Last Admin: 03/14/22 04:51 Dose: 650 mg Documented by: JULIUS Albuterol/Ipratropium (Albuterol/Iprat 2.5/0.5mg 3 Ml Ampul.Neb) 3 ml INHALE RQ4H PRN PRN Reason: Shortness of Breath/Wheezing Last Admin: 03/14/22 23:13 Dose: 3 ml Documented by: CHRISSIE Amlodipine Besylate (Amlodipine Besylate 5 Mg Tablet) 5 mg PO DAILY [facility]; Protocol Last Admin: 03/14/22 10:51 Dose: 5 mg Documented by: OSMANI Aspirin (Aspirin 81 Mg Tab.Chew) 81 mg PO DAILY [facility] Last Admin: 03/14/22 10:52 Dose: Not Given Documented by: OSMANI Non-Admin Reason: hold per Atorvastatin Calcium (Atorvastatin Calcium 40 Mg Tablet) 40 mg PO DAILY [facility] Last Admin: 03/14/22 10:51 Dose: 40 mg Documented by: OSMANI Dextrose (Dextrose 50 % 25 Gm/50 Ml Syringe) 25 gm IVPUSH Q15M PRN; Protocol PRN Reason: per Hypoglycemia Standing Ord. Diazepam (Diazepam 5 Mg Tablet) 5 mg PO TID [facility] Last Admin: 03/14/22 20:40 Dose: 5 mg Documented by: DOLORES Doxazosin Mesylate (Doxazosin Mesylate 2 Mg Tablet) 8 mg PO BEDTIME [facility]; Protocol Last Admin: 03/14/22 20:39 Dose: 8 mg Documented by: DOLORES Finasteride (Finasteride 5 Mg Tablet) 5 mg PO DAILY [facility] Last Admin: 03/14/22 10:51 Dose: 5 mg Documented by: OSMANI Glucose (Glucose Gel 15 Gm Gel..Gram.) 15 gm PO Q15M PRN; Protocol PRN Reason: per Hypoglycemia Standing Ord. Ceftriaxone Sodium 1 gm/ (Sodium Chloride) 50 mls @ 100 mls/hr IV Q24H [facility] Last Infusion: 03/14/22 16:15 Dose: 0 mls/hr Documented by: OSMANI Insulin Human Lispro (Insulin Lispro 100 Unit/Ml 3 Ml Vial) 0 unit SUBCUT QIDACHS [facility]; Protocol Last Admin: 03/15/22 09:15 Dose: Not Given Documented by: NITHYA Non-Admin Reason: No Insulin Coverage Losartan Potassium (Losartan Potassium 50 Mg Tablet) 100 mg PO DAILY [facility]; Protocol Last Admin: 03/14/22 10:51 Dose: 100 mg Documented by: OSMANI Magnesium Oxide (Magnesium Oxide 400 Mg Tablet) 400 mg PO BIDPC [facility] Last Admin: 03/14/22 17:11 Dose: 400 mg Documented by: DOLORES Perphenazine (Perphenazine 4 Mg Tablet) 4 mg PO TID [facility] Last Admin: 03/14/22 20:40 Dose: 4 mg Documented by: DOLORES Pharmacy Consult (Consult Rx Perform Med Rec) 1 each MISCELLANE ONCE PRN PRN Reason: Consult order Sodium Chloride (0.9 % Sodium Chloride Flush 3 Ml Syringe) 3 ml IVFLUSH QSHIFT [facility] Last Admin: 03/15/22 01:07 Dose: 3 ml Documented by: JEANNETTE Vitamin D (Cholecalciferol (Vitamin D3) 25 Mcg Tablet) 50 mcg PO DAILY [facility] Last Admin: 03/14/22 10:51 Dose: 50 mcg Documented by: OSMANI Labs CBC & Chem 7: 03/15/22 05:42 03/15/22 05:42 Labs: Laboratory Results - last 24 hr 0603/14/22 03/14/22 11:26 16:19 19:58 MCV MCH MCHC RDW Plt Count MPV Absolute Nucleated RBC Nucleated RBC % (auto) PT INR APTT Anion Gap Estim Creat Clear Calc Estimated GFR POC Glucose 248 H 146 H 180 H Random Glucose Calcium Procalcitonin 03/15/22 03/15/22 03/15/22 05:42 05:42 05:42 MCV 90.3 MCH 30.0 MCHC 33.2 RDW 13.2 Plt Count 212 MPV 9.7 Absolute Nucleated RBC 0.000 Nucleated RBC % (auto) 0.0 PT 12.6 INR 1.1 APTT 30.1 Anion Gap 14 Estim Creat Clear Calc 76.1 Estimated GFR > 60 POC Glucose Random Glucose 140 H Calcium 9.3 Procalcitonin 03/15/22 03/15/22 05:42 07:34 MCV MCH MCHC RDW Plt Count MPV Absolute Nucleated RBC Nucleated RBC % (auto) PT INR APTT Anion Gap Estim Creat Clear Calc Estimated GFR POC Glucose 125 H Random Glucose Calcium Procalcitonin 0.05 Microbiology Microbiology Results: Microbiology 03/12/22 11:25 Gram Stain - Final Thoracentesis Fluid Anaerobic Culture - Preliminary No growth to date. Body Fluid Culture - Final No growth after 2 days 03/10/22 07:19 Blood Culture - Final Blood - Venous No growth after 5 days. 03/10/22 07:14 Blood Culture - Final Blood - Venous No growth after 5 days. Assessment and Plan (1) Diabetes mellitus: Status: Acute Plan d#6 76yo M resident of [facility] [LTC] presenting with dyspnea, found to be hypoxic with L pleural effusion, postobstructive pneumonia with underlying lung mass # acute hypoxic resp failure--O2 sat remains low - continue to wean O2 as tolerated # pleural effusion - thoracentesis done 03/12/22 with removal of 1.1L of exudative pleural fluid, cytology + microbiology no growth over 24, suspect malignant # lung mass - CT-guided biopsy today], suspect malignancy # postobstructive PNA - d#6 ceftriaxone, follow BCx + pleural fluid Cx # pancreatic cyst - dedicated CT A/P done 03/13, results pending # AF, chronic - not on AC. rate-controlled. # HTN - amlodipine # hx CVA - conitnue statin - ASA on hold for lung bx # BPH - doxazosin + finasteride # DM2 - correction-dose lispro # mood disorder - continue perphenazine + diazepam # VTE ppx - SCDs In my clinical judgment, the patient requires continued hospitalization for the following reasons: hypoxia requring oxyge titration, IV ABX, lung biopsy Quality Stroke Does the patient have a stroke diagnosis?: No VTE Prior VTE?: No VTE Risk Level:: Medical - moderate - high VTE Device Contraindication: Treatment Not Indicated VTE Drug Contraindication: N/A - Med Ordered
[2022-03-15 10:21] LABS: Glucose, Whole Blood 143 mg/dL (60-115)
--- NOTE | 2022-03-15 11:06 | PC.NURSE ---
pt cancelled due to asa not being held for 3 days. pt brought back to floor.
[2022-03-15] MEDS: Cholecalciferol (Vitamin D3) 25 MCG TABLET 50 MCG PO (11:08)
[2022-03-15] MEDS: Atorvastatin Calcium 40 MG TABLET PO (11:09)
[2022-03-15] MEDS: Magnesium Oxide 400 MG TABLET PO ×2 (11:09→16:36)
[2022-03-15] MEDS: diazePAM 5 MG TABLET PO ×2 (11:09→14:52)
[2022-03-15] MEDS: amLODIPine Besylate 5 MG TABLET PO (11:09)
[2022-03-15] MEDS: Losartan Potassium 50 MG TABLET 100 MG PO (11:09)
[2022-03-15] MEDS: Perphenazine 4 MG TABLET PO ×3 (11:09→20:13)
[2022-03-15] MEDS: Finasteride 5 MG TABLET PO (11:09)
[2022-03-15 11:29] LABS: Glucose, Whole Blood 139 mg/dL (60-115)
[2022-03-15] MEDS: cefTRIAXone sodium 1 GM in 0.9 % Sodium Chloride 50 ML IV (13:40)
[2022-03-15 15:22] VITALS: BP 102/62; PULSE 81; RESP 18; TEMP 36.6; O2SAT 92
[2022-03-15 16:03] LABS: Glucose, Whole Blood 224 mg/dL (60-115)
[2022-03-15] MEDS: Insulin Lispro 100 UNIT/ML 3 ML VIAL SUBCUT (16:35)
[2022-03-15] MEDS: Albuterol/Iprat 2.5/0.5MG 3 ML AMPUL.NEB INHALE (16:51)
[2022-03-15 16:53] VITALS: PULSE 72; RESP 20; O2SAT 94
[2022-03-15 19:46] VITALS: BP 132/65; PULSE 85; RESP 18; TEMP 36.6; O2SAT 93
[2022-03-15] MEDS: Doxazosin Mesylate 2 MG TABLET 8 MG PO (20:13)
[2022-03-15 20:34] LABS: Glucose, Whole Blood 103 mg/dL (60-115)
[2022-03-15 23:52] VITALS: BP 100/58; PULSE 54; RESP 17; TEMP 36.1; O2SAT 94
[2022-03-16 07:47] VITALS: BP 117/64; PULSE 80; RESP 23; TEMP 36.8; O2SAT 93
[2022-03-16 07:53] LABS: Glucose, Whole Blood 137 mg/dL (60-115)
--- NOTE | 2022-03-16 08:55 | P.PNIM_ITS ---
Subjective Subjective Date of Service: 03/16/22 Interval History: O2 requirement is stable on 4L Dyspnea improved No cough No fever Review of Systems no fever no chills no sob Physical Exam Vital Signs: Vital Signs: Last Vital Signs Temp 98.3 F 03/16/22 07:47 Pulse 80 03/16/22 07:47 Resp 23 H 03/16/22 07:47 BP 117/64 03/16/22 07:47 Pulse Ox 93 03/16/22 07:47 BMI result Body Mass Index 28.3 Const: Other: Gen: in no acute distress, difficult to understand due to aphasia HEENT: sclera anicteric, moist mucus membranes Neck: supple Lungs: decreased air entry L side Heart: irregularly irregular no murmurs Abd: soft, non-tender, non-distended Ext: no edema Skin: warm/well-perfused Neuro: alert, moderate expressive aphasia, R hemiparesis Objective Data Active Medications Acetaminophen (Acetaminophen 325 Mg Tablet) 650 mg PO Q6H PRN PRN Reason: Pain, Mild (Pain Scale 1-3) Last Admin: 03/14/22 04:51 Dose: 650 mg Documented by: JULIUS Albuterol/Ipratropium (Albuterol/Iprat 2.5/0.5mg 3 Ml Ampul.Neb) 3 ml INHALE RQ4H PRN PRN Reason: Shortness of Breath/Wheezing Last Admin: 03/15/22 16:51 Dose: 3 ml Documented by: KAYA Amlodipine Besylate (Amlodipine Besylate 5 Mg Tablet) 5 mg PO DAILY [facility]; Protocol Last Admin: 03/15/22 11:09 Dose: 5 mg Documented by: NITHYA Aspirin (Aspirin 81 Mg Tab.Chew) 81 mg PO DAILY [facility] Last Admin: 03/15/22 11:03 Dose: Not Given Documented by: NITHYA Non-Admin Reason: hold Atorvastatin Calcium (Atorvastatin Calcium 40 Mg Tablet) 40 mg PO DAILY [facility] Last Admin: 03/15/22 11:09 Dose: 40 mg Documented by: NITHYA Dextrose (Dextrose 50 % 25 Gm/50 Ml Syringe) 25 gm IVPUSH Q15M PRN; Protocol PRN Reason: per Hypoglycemia Standing Ord. Doxazosin Mesylate (Doxazosin Mesylate 2 Mg Tablet) 8 mg PO BEDTIME [facility]; Protocol Last Admin: 03/15/22 20:13 Dose: 8 mg Documented by: DOLORES Finasteride (Finasteride 5 Mg Tablet) 5 mg PO DAILY [facility] Last Admin: 03/15/22 11:09 Dose: 5 mg Documented by: NITHYA Glucose (Glucose Gel 15 Gm Gel..Gram.) 15 gm PO Q15M PRN; Protocol PRN Reason: per Hypoglycemia Standing Ord. Ceftriaxone Sodium 1 gm/ (Sodium Chloride) 50 mls @ 100 mls/hr IV Q24H [facility] Last Infusion: 03/15/22 14:39 Dose: 100 mls/hr Documented by: NITHYA Insulin Human Lispro (Insulin Lispro 100 Unit/Ml 3 Ml Vial) 0 unit SUBCUT QIDACHS [facility]; Protocol Last Admin: 03/15/22 20:55 Dose: Not Given Documented by: DOLORES Non-Admin Reason: No Insulin Coverage Losartan Potassium (Losartan Potassium 50 Mg Tablet) 100 mg PO DAILY [facility]; Protocol Last Admin: 03/15/22 11:09 Dose: 100 mg Documented by: NITHYA Magnesium Oxide (Magnesium Oxide 400 Mg Tablet) 400 mg PO BIDPC [facility] Last Admin: 03/15/22 16:36 Dose: 400 mg Documented by: DOLORES Perphenazine (Perphenazine 4 Mg Tablet) 4 mg PO TID [facility] Last Admin: 03/15/22 20:13 Dose: 4 mg Documented by: DOLORES Pharmacy Consult (Consult Rx Perform Med Rec) 1 each MISCELLANE ONCE PRN PRN Reason: Consult order Sodium Chloride (0.9 % Sodium Chloride Flush 3 Ml Syringe) 3 ml IVFLUSH QSHIFT [facility] Last Admin: 03/15/22 23:55 Dose: 3 ml Documented by: JEANNETTE Vitamin D (Cholecalciferol (Vitamin D3) 25 Mcg Tablet) 50 mcg PO DAILY [facility] Last Admin: 03/15/22 11:08 Dose: 50 mcg Documented by: NITHYA Labs CBC & Chem 7: 03/15/22 05:42 03/15/22 05:42 Labs: Laboratory Results - last 24 hr 03/15/22 03/15/22 03/15/22 10:10 11:04 15:59 POC Glucose 143 H 139 H 224 H 03/15/22 03/16/22 20:29 07:45 POC Glucose 103 137 H Microbiology Microbiology Results: Microbiology 03/10/22 13:31 Blood Culture - Final Blood - Venous No growth after 5 days. 03/10/22 11:35 Blood Culture - Final Blood - Venous No growth after 5 days. 03/12/22 11:25 Gram Stain - Final Thoracentesis Fluid Anaerobic Culture - Preliminary No growth to date. Body Fluid Culture - Final No growth after 2 days 03/10/22 07:19 Blood Culture - Final Blood - Venous No growth after 5 days. 03/10/22 07:14 Blood Culture - Final Blood - Venous No growth after 5 days. Assessment and Plan (1) Diabetes mellitus: Status: Acute Plan d#7 76yo M resident of [facility] [LTC] presenting with dyspnea, found to be hypoxic with L pleural effusion, postobstructive pneumonia with underlying lung mass # acute hypoxic resp failure--O2 sat remains low - continue to wean O2 as tolerated, keep O2 sat > 92 # pleural effusion - thoracentesis done 03/12/22 with removal of 1.1L of exudative pleural fluid. Francisco is negative. Cytology = Positive for malignancy consistent with adenocarcinoma # lung mass--mass is central and radiology recommended bronchoscopy instead. But now that Pleural fluis + positive for malignancy, I don't think Bx is no longer necessary, will consult oncology # postobstructive PNA - d#7 ceftriaxone, cultures negative # pancreatic cyst - dedicated CT A/P done 03/13, results pending # Chronic AFIB - not on AC. rate-controlled. # HTN - amlodipine # hx CVA - conitnue statin - ASA on hold for lung bx # BPH - doxazosin + finasteride # DM2 - correction-dose lispro # mood disorder - continue perphenazine + diazepam # VTE ppx - SCDs In my clinical judgment, the patient requires continued hospitalization for the following reasons: hypoxia requring oxyge titration, IV ABX, Quality Stroke Does the patient have a stroke diagnosis?: No VTE Prior VTE?: No VTE Risk Level:: Medical - moderate - high VTE Device Contraindication: Treatment Not Indicated VTE Drug Contraindication: N/A - Med Ordered
[2022-03-16] MEDS: Cholecalciferol (Vitamin D3) 25 MCG TABLET 50 MCG PO (09:48)
[2022-03-16] MEDS: Magnesium Oxide 400 MG TABLET PO ×2 (09:48→17:08)
[2022-03-16] MEDS: Finasteride 5 MG TABLET PO (09:48)
[2022-03-16] MEDS: Losartan Potassium 50 MG TABLET 100 MG PO (09:48)
[2022-03-16] MEDS: Perphenazine 4 MG TABLET PO ×3 (09:49→21:22)
[2022-03-16] MEDS: amLODIPine Besylate 5 MG TABLET PO (09:49)
[2022-03-16] MEDS: Atorvastatin Calcium 40 MG TABLET PO (09:49)
[2022-03-16] MEDS: Acetaminophen 325 MG TABLET 650 MG PO (09:49)
[2022-03-16] MEDS: 0.9 % Sodium Chloride Flush 3 ML SYRINGE IVFLUSH ×2 (09:50→17:08)
--- NOTE | 2022-03-16 10:22 | PM.HEMONCCN ---
Subjective - Subjective Chief complaint: Consult for: Lung cancer. Patient: new to practice Consult date: 03/16/22 Requesting Physician: Margarita. Primary Care Provider: Torsten Ramirez MD Medical Summary: DIAGNOSIS: ADENOCARCINOMA of Lung, Stage IV disease. HPI - Consult Narrative Reason for consult: Consult for: Adenocarcinoma of Lung. Narrative: Jose C Steward is a pleasant 76 year old gentleman, with H/O CVA with right hemipoaresis, who presented with a 2 weeks H/O cough and SOB. Denies CP, fever nor chills. Noted to be hypoxic, with O2 sats.in 70ies - 80 ies. Cat scan of chest revealed: Noted to have large left sided effusion and 7.3 cm lung mass. Underwent a thoracentesis, with removal of 1 liter of fluid. Cytology: Adenocarcinoma. PMH: 1. At. Fib. 2. L cva with right hemiparesis and broca s aphasia. Review of Systems - Constitutional Reports system reviewed and no additional complaints, except as documented, Reports fatigue, Reports lack of energy - Eyes Reports system reviewed and no additional complaints, except as documented - ENT Reports system reviewed and no additional complaints, except as documented - Cardiovascular Reports system reviewed and no additional complaints, except as documented - Respiratory Reports no additional respiratory complaints - Gastrointestinal Reports system reviewed and no additional complaints, except as documented - Genitourinary Genitourinary: Reports no additional male genitourinary complaints - Musculoskeletal Reports system reviewed and no additional complaints, except as documented - Integumentary/Breasts Skin/Breast: Reports no additional skin complaints - Neurologic Reports system reviewed and no additional complaints, except as documented - Psychiatric Reports system reviewed and no additional complaints, except as documented - Endocrine Reports no additional endocrine complaints - Hematologic/Lymphatic Reports system reviewed and no additional complaints, except as documented - Allergic/Immunologic Reports system reviewed and no additional complaints, except as documented Oncology Screenings - ECOG Performance Status ECOG Performance Status: 2 [facility] Medical History: Medical History (Last Updated 03/20/22 @ 09:26 by Duane Mattson MD) Aphasia Atelectasis of left lung Diabetes mellitus History of CVA (cerebrovascular accident) Malignant pleural effusion Myocardial infarction Right hemiparesis Functional capacity: wheelchair bound Patient : No Surgical History: Surgical History (Last Updated 03/15/22 @ 09:48 by Michelle Bhagat RN) History of removal of cyst Social History: Social History (Last Updated 03/10/22 @ 12:31 by Malcolm Light MD) Living Situation History: Housing: Jail Tobacco History: Patient Tobacco Use Status: Former Tobacco user Smoke Quit Date: 30 yr ago Occupation Assessmet: service: Yes Current occupational status: retired Current occupational status: disabled Home Medications and Allergies Current Medications: Current Medications Acetaminophen (Acetaminophen 325 Mg Tablet) 650 mg PO Q6H PRN PRN Reason: Pain, Mild (Pain Scale 1-3) Last Admin: 03/16/22 09:49 Dose: 650 mg Documented by: Albuterol/Ipratropium (Albuterol/Iprat 2.5/0.5mg 3 Ml Ampul.Neb) 3 ml INHALE RQ4H PRN PRN Reason: Shortness of Breath/Wheezing Last Admin: 03/15/22 16:51 Dose: 3 ml Documented by: Amlodipine Besylate (Amlodipine Besylate 5 Mg Tablet) 5 mg PO DAILY [facility]; Protocol Last Admin: 03/16/22 09:49 Dose: 5 mg Documented by: Aspirin (Aspirin 81 Mg Tab.Chew) 81 mg PO DAILY [facility] Last Admin: 03/15/22 11:03 Dose: Not Given Documented by: Atorvastatin Calcium (Atorvastatin Calcium 40 Mg Tablet) 40 mg PO DAILY [facility] Last Admin: 03/16/22 09:49 Dose: 40 mg Documented by: Dextrose (Dextrose 50 % 25 Gm/50 Ml Syringe) 25 gm IVPUSH Q15M PRN; Protocol PRN Reason: per Hypoglycemia Standing Ord. Doxazosin Mesylate (Doxazosin Mesylate 2 Mg Tablet) 8 mg PO BEDTIME [facility]; Protocol Last Admin: 03/15/22 20:13 Dose: 8 mg Documented by: Finasteride (Finasteride 5 Mg Tablet) 5 mg PO DAILY [facility] Last Admin: 03/16/22 09:48 Dose: 5 mg Documented by: Glucose (Glucose Gel 15 Gm Gel..Gram.) 15 gm PO Q15M PRN; Protocol PRN Reason: per Hypoglycemia Standing Ord. Ceftriaxone Sodium 1 gm/ (Sodium Chloride) 50 mls @ 100 mls/hr IV Q24H [facility] Last Infusion: 03/15/22 14:39 Dose: Infused Documented by: Insulin Human Lispro (Insulin Lispro 100 Unit/Ml 3 Ml Vial) 0 unit SUBCUT QIDACHS [facility]; Protocol Last Admin: 03/16/22 09:49 Dose: Not Given Documented by: Losartan Potassium (Losartan Potassium 50 Mg Tablet) 100 mg PO DAILY [facility]; Protocol Last Admin: 03/16/22 09:48 Dose: 100 mg Documented by: Magnesium Oxide (Magnesium Oxide 400 Mg Tablet) 400 mg PO BIDPC [facility] Last Admin: 03/16/22 09:48 Dose: 400 mg Documented by: Methylprednisolone Sodium Succinate (Methylprednisolone Sod Succ 125 Mg/2 Ml Vial) 60 mg IVPUSH Q6H [facility] Perphenazine (Perphenazine 4 Mg Tablet) 4 mg PO TID [facility] Last Admin: 03/16/22 09:49 Dose: 4 mg Documented by: Pharmacy Consult (Consult Rx Perform Med Rec) 1 each MISCELLANE ONCE PRN PRN Reason: Consult order Sodium Chloride (0.9 % Sodium Chloride Flush 3 Ml Syringe) 3 ml IVFLUSH QSHIFT [facility] Last Admin: 03/16/22 09:50 Dose: 3 ml Documented by: Vitamin D (Cholecalciferol (Vitamin D3) 25 Mcg Tablet) 50 mcg PO DAILY [facility] Last Admin: 03/16/22 09:48 Dose: 50 mcg Documented by: Home Medications Medication Instructions Recorded Confirmed Type acetaminophen 325 mg tablet 650 mg PO Q4H PRN Pain 03/10/22 03/10/22 History amlodipine 5 mg tablet 1 tab PO DAILY 03/10/22 03/10/22 History aspirin 81 mg chewable tablet 81 mg PO DAILY 03/10/22 03/10/22 History atorvastatin 40 mg tablet 1 tab PO DAILY 03/10/22 03/10/22 History cholecalciferol (vitamin D3) 50 50 mcg PO DAILY 03/10/22 03/10/22 History mcg (2,000 unit) tablet clorazepate dipotassium 7.5 mg 7.5 mg PO TID 03/10/22 03/10/22 History tablet doxazosin 8 mg tablet 1 tab PO BEDTIME 03/10/22 03/10/22 History finasteride 5 mg tablet 1 tab PO DAILY 03/10/22 03/10/22 History metformin 500 mg tablet 1 tab PO BID 03/10/22 03/10/22 History omega 3-kpd-akh-fish oil 1,200 mg 3 cap PO DAILY 03/10/22 03/10/22 History (144 mg-216 mg) capsule (Fish Oil) perphenazine 2 mg tablet 4 mg PO TID 03/10/22 03/10/22 History Allergies Allergy/AdvReac Type Severity Reaction Status Date / Time lorazepam Allergy Unknown Verified 03/10/22 13:36 Physical Exam Vital signs: Vital Signs Temp 98.3 F 03/16/22 07:47 Pulse 80 03/16/22 07:47 Resp 23 H 03/16/22 07:47 BP 117/64 03/16/22 07:47 Pulse Ox 93 03/16/22 07:47 Intake & Output 03/15/22 03/16/22 03/16/22 18:59 06:59 18:59 Intake Total 170 / 530 360 / 530 Output Total 400 / 400 Balance 170 / 130 -40 / 130 Urine Output (Average ml/kg/hr) 0.41 Intake: Intake, Oral Amount 120 / 480 360 / 480 Intake, IV Amount 50 / 50 cefTRIAXone sodium 1 gm In 0.9 50 / 50 % Sodium Chloride 50 ml @ 100 mls/hr IV Q24H [facility] Rx#: [id number] Output: Output, Urine Amount 400 / 400 Other: Meal Refused No No NPO Yes No Lunch % Eaten npo Dinner % Eaten 75% Number of Incontinent Voids 2 Urine x-cath Urine Color Yellow Weight 82.1 kg - Constitutional Present: mild distress - Routine HEENT Exam Head: Present: normal inspection ENT: Present: mucous membranes moist - Routine Neck Exam Present: supple - Routine Respiratory Exam Present: decreased breath sounds - Routine Cardiovascular Exam Cardiovascular: Present: RRR, S1, S2 - Routine Abdominal Exam Present: soft, nontender - Routine Extremities Exam Present: nontender - Routine Skin Exam Present: intact - Routine Neurological Exam Present: alert, motor deficit. Absent: normal speech - Detailed Neurological Exam: Coma Scale Eye Opening: Spontaneous (4) Verbal Response: Oriented (5) Motor Response: Obeys commands (6) [place] Coma Scale Total: 15 - Routine Psychiatric Exam Present: flat affect Hem/Onc Consult Result - Labs CBC & Chem 7: 03/19/22 16:02 03/20/22 10:49 Assessment and Plan Patient Active problem list reviewed?: Yes (1) Adenocarcinoma of lung Status: Acute Assessment and plan: 76 year old gentleman, with H/O CVA, smoking, who presents with a cough and SOB. He was noted to be hypoxic. CAT scan of chest revealed: Ovoid 7.3 cm lung mass and a large pleural effusion. Adjacent atelectasis/versus post obstructive pneumonia. Cytology: Adenocarcinoma. PLAN: Will proceed with Pleurax catheter placement. Meanwhile, add special immunostains/ mutational analysis, to pathology: EGFR, ALK, PDL 1, etc. Will decide about further treatment based upon the above results. He may be a candidate for a target+ed agent, if he is noted to have an actionable mutation. Had a detailed discussion with the patient along with his daughter. Reviewed treatment options and prognosis. All their questions were answered to their satisfaction. Will see him back as an outpatient. Thanks, CC: Ashley. - Time Spent With Patient Time Spent with Patient (in minutes): 30
[2022-03-16] MEDS: methylPREDNISolone Sod Succ 125 MG/2 ML VIAL 60 MG IVPUSH ×3 (10:51→21:22)
--- NOTE | 2022-03-16 11:26 | P.CONPL_ITS ---
History of Present Illness History of Present Illness Consult date: 03/16/22 Reason for consult: dyspnea, cough and lung mass Chief complaint: LEFT LUNG MASS Narrative: I was us to see this 76 years old gentleman, for pulmonary consultation, admitted since 03/10, with 2 weeks history of increasing shortness of breath cough, minimal expectoration. No fever or chills and no chest pain. Chest x-ray and CT scan were grossly abnormal. On the CT scan there was evidence of a large left-sided pleural effusion,. And patient had thoracentesis of the left chest, draining about 1.1 L of fluid which was exudative in nature. 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 Patient continues to have a mass in the left lower lobe, with atelectasis, and continues to have some shortness of breath requiring O2 3-4 L/minute. Past medical history includes an old stroke which has left him with partial if his year and right hemiparesis. He does have history of smoking in the past but quit about 30 years ago. Does not have history of chronic lung disease, and was not using any bronchodilator inhalers. [facility] is reviewed. Review of Systems Review of Systems: Yes all other systems are reviewed and are negative and Unobtainable due to mental condition PMFSH Past Medical History Medical History (Updated 03/16/22 @ 11:37 by Rachelle Bull MD) Aphasia Atelectasis of left lung Diabetes mellitus History of CVA (cerebrovascular accident) Myocardial infarction Right hemiparesis Functional capacity: wheelchair bound Surgical History Surgical History (Updated 03/16/22 @ 10:51 by Sasha Reynolds MD) History of removal of cyst Social History Social History (Updated 03/10/22 @ 12:31 by Malcolm Light MD) Housing: Senior Living Alcohol intake: never Patient Tobacco Use Status: Former Tobacco user Quit Date: 30 yr ago service: Yes Current occupational status: retired and disabled Meds Allergies Allergy/AdvReac Type Severity Reaction Status Date / Time lorazepam Allergy Unknown Verified 03/10/22 13:36 Active Medications: Current Medications Acetaminophen (Acetaminophen 325 Mg Tablet) 650 mg PO Q6H PRN PRN Reason: Pain, Mild (Pain Scale 1-3) Last Admin: 03/16/22 09:49 Dose: 650 mg Documented by: Albuterol/Ipratropium (Albuterol/Iprat 2.5/0.5mg 3 Ml Ampul.Neb) 3 ml INHALE RQ4H PRN PRN Reason: Shortness of Breath/Wheezing Last Admin: 03/15/22 16:51 Dose: 3 ml Documented by: Amlodipine Besylate (Amlodipine Besylate 5 Mg Tablet) 5 mg PO DAILY [facility]; Protocol Last Admin: 03/16/22 09:49 Dose: 5 mg Documented by: Aspirin (Aspirin 81 Mg Tab.Chew) 81 mg PO DAILY [facility] Last Admin: 03/15/22 11:03 Dose: Not Given Documented by: Atorvastatin Calcium (Atorvastatin Calcium 40 Mg Tablet) 40 mg PO DAILY [facility] Last Admin: 03/16/22 09:49 Dose: 40 mg Documented by: Dextrose (Dextrose 50 % 25 Gm/50 Ml Syringe) 25 gm IVPUSH Q15M PRN; Protocol PRN Reason: per Hypoglycemia Standing Ord. Doxazosin Mesylate (Doxazosin Mesylate 2 Mg Tablet) 8 mg PO BEDTIME [facility]; Protocol Last Admin: 03/15/22 20:13 Dose: 8 mg Documented by: Finasteride (Finasteride 5 Mg Tablet) 5 mg PO DAILY [facility] Last Admin: 03/16/22 09:48 Dose: 5 mg Documented by: Glucose (Glucose Gel 15 Gm Gel..Gram.) 15 gm PO Q15M PRN; Protocol PRN Reason: per Hypoglycemia Standing Ord. Ceftriaxone Sodium 1 gm/ (Sodium Chloride) 50 mls @ 100 mls/hr IV Q24H [facility] Last Infusion: 03/15/22 14:39 Dose: Infused Documented by: Insulin Human Lispro (Insulin Lispro 100 Unit/Ml 3 Ml Vial) 0 unit SUBCUT Q IDACHS [facility]; Protocol Last Admin: 03/16/22 09:49 Dose: Not Given Documented by: Losartan Potassium (Losartan Potassium 50 Mg Tablet) 100 mg PO DAILY [facility]; Protocol Last Admin: 03/16/22 09:48 Dose: 100 mg Documented by: Magnesium Oxide (Magnesium Oxide 400 Mg Tablet) 400 mg PO BIDPC [facility] Last Admin: 03/16/22 09:48 Dose: 400 mg Documented by: Methylprednisolone Sodium Succinate (Methylprednisolone Sod Succ 125 Mg/2 Ml Vial) 60 mg IVPUSH Q6H [facility] Last Admin: 03/16/22 10:51 Dose: 60 mg Documented by: Perphenazine (Perphenazine 4 Mg Tablet) 4 mg PO TID [facility] Last Admin: 03/16/22 09:49 Dose: 4 mg Documented by: Pharmacy Consult (Consult Rx Perform Med Rec) 1 each MISCELLANE ONCE PRN PRN Reason: Consult order Sodium Chloride (0.9 % Sodium Chloride Flush 3 Ml Syringe) 3 ml IVFLUSH QSHIFT [facility] Last Admin: 03/16/22 09:50 Dose: 3 ml Documented by: Vitamin D (Cholecalciferol (Vitamin D3) 25 Mcg Tablet) 50 mcg PO DAILY [facility] Last Admin: 03/16/22 09:48 Dose: 50 mcg Documented by: Home Medications Medication Instructions Recorded Confirmed Last Taken Type acetaminophen 325 mg tablet 650 mg PO Q4H PRN 03/10/22 03/10/22 03/10/22 History amlodipine 5 mg tablet 1 tab PO DAILY 03/10/22 03/10/22 03/09/22 History aspirin 81 mg chewable tablet 81 mg PO DAILY 03/10/22 03/10/22 03/09/22 History atorvastatin 40 mg tablet 1 tab PO DAILY 03/10/22 03/10/22 03/09/22 History cholecalciferol (vitamin D3) 50 50 mcg PO DAILY 03/10/22 03/10/22 03/09/22 History mcg (2,000 unit) tablet clorazepate dipotassium 7.5 mg 7.5 mg PO TID 03/10/22 03/10/22 03/09/22 History tablet doxazosin 8 mg tablet 1 tab PO BEDTIME 03/10/22 03/10/22 03/09/22 History finasteride 5 mg tablet 1 tab PO DAILY 03/10/22 03/10/22 03/09/22 History losartan 100 mg tablet 1 tab PO DAILY 03/10/22 03/10/22 03/09/22 History metformin 500 mg tablet 1 tab PO BID 03/10/22 03/10/22 03/09/22 History omega 0-ezd-ijt-fish oil 1,200 mg 3 cap PO DAILY 03/10/22 03/10/22 03/09/22 History (144 mg-216 mg) capsule (Fish Oil) perphenazine 2 mg tablet 4 mg PO TID 03/10/22 03/10/22 03/09/22 History Physical Exam Vital Signs: Vital Signs: Last Vital Signs Temp 98.3 F 03/16/22 07:47 Pulse 80 03/16/22 07:47 Resp 23 H 03/16/22 07:47 BP 117/64 03/16/22 07:47 Pulse Ox 93 03/16/22 07:47 BMI result Body Mass Index 28.3 Const: General: comfortable (On O2), no acute distress, alert and awake (But cannot do conversation because of his aphasia) HEENT: Other: Could not examine completely. General nose exam: No nasal polyps present and No nasal discharge present Mouth: oropharynx normal Throat: Yes posterior oropharynx normal Eyes: General: appearance normal, both eyes and all related structures Neck: Neck: Yes normal visual inspection, Yes no lymphadenopathy, Yes trachea midline and Yes no JVD Thyroid: Thyroid normal Chest: Chest palpation & inspection: normal inspection of the chest and no tenderness Resp: Other: Percussion note dull owned left lower lobe, with decreased breath sounds, and a few inspiratory crackles over the same area. Cardio: Palpation: normal PMI Rate: regular rate Rhythm: regular rhythm Heart sounds: no gallops and no murmurs GI: Palpation (GI): Soft to palpation, nontender, No hepatosplenomegaly present and no masses Auscultation: normal bowel sounds Back/Spine/Pelvis: Other: Could not examine Skin: General skin exam: no rashes or lesions noted Neuro: Other: A face a and right hemiparesis are present Extrem: General: Yes normal to inspection, Yes no clubbing, cyanosis or edema and Yes no calf tenderness Psych: Speech and movement: Normal speech and movement present Results Laboratory Findings CBC and BMP: 03/15/22 05:42 03/15/22 05:42 ABG, PT/INR, D-dimer: PT/INR, D-dimer PT 12.6 SEC (9.9-13.0) 03/15/22 05:42 INR 1.1 (0.9-1.1) 03/15/22 05:42 Abnormal lab findings: Abnormal Labs 03/10/22 03/10/22 03/10/22 06:34 06:34 06:34 RBC 4.19 L Hgb 12.2 L Hct 37.4 L MPV Lymph % (Auto) 16.2 L VBG pH VBG HCO3 Carbon Dioxide BUN 20 H POC Glucose Random Glucose 145 H Fasting Glucose B-Natriuretic Peptide 323 H Albumin 3.4 L 03/10/22 03/10/22 03/11/22 18:15 21:10 06:12 RBC 3.97 L Hgb 11.5 L Hct 35.7 L MPV 9.3 L Lymph % (Auto) VBG pH VBG HCO3 Carbon Dioxide BUN POC Glucose 150 H 123 H Random Glucose Fasting Glucose B-Natriuretic Peptide Albumin 03/11/22 03/11/22 03/11/22 06:12 07:33 11:10 RBC Hgb Hct MPV Lymph % (Auto) VBG pH VBG HCO3 Carbon Dioxide 32 H BUN 23 H POC Glucose 133 H 152 H Random Glucose Fasting Glucose 149 H B-Natriuretic Peptide Albumin 03/11/22 03/12/22 03/12/22 20:33 07:24 12:11 RBC Hgb Hct MPV Lymph % (Auto) VBG pH VBG HCO3 Carbon Dioxide BUN POC Glucose 126 H 125 H 141 H Random Glucose Fasting Glucose B-Natriuretic Peptide Albumin 03/12/22 03/12/22 03/13/22 16:10 21:04 05:46 RBC 3.71 L Hgb 10.8 L Hct 33.3 L MPV 9.1 L Lymph % (Auto) VBG pH VBG HCO3 Carbon Dioxide BUN POC Glucose 277 H 140 H Random Glucose Fasting Glucose B-Natriuretic Peptide Albumin 03/13/22 03/13/22 03/13/22 05:46 05:51 07:46 RBC Hgb Hct MPV Lymph % (Auto) VBG pH 7.44 H VBG HCO3 35 H Carbon Dioxide 32 H BUN 34 H POC Glucose 138 H Random Glucose 144 H Fasting Glucose B-Natriuretic Peptide Albumin 03/13/22 03/13/22 03/13/22 11:02 15:35 19:39 RBC Hgb Hct MPV Lymph % (Auto) VBG pH VBG HCO3 Carbon Dioxide BUN POC Glucose 241 H 149 H 174 H Random Glucose Fasting Glucose B-Natriuretic Peptide Albumin 03/14/22 03/14/22 03/14/22 07:14 11:26 16:19 RBC Hgb Hct MPV Lymph % (Auto) VBG pH VBG HCO3 Carbon Dioxide BUN POC Glucose 144 H 248 H 146 H Random Glucose Fasting Glucose B-Natriuretic Peptide Albumin 03/14/22 03/15/22 03/15/22 19:58 05:42 05:42 RBC 3.73 L Hgb 11.2 L Hct 33.7 L MPV Lymph % (Auto) VBG pH VBG HCO3 Carbon Dioxide 31 H BUN 28 H POC Glucose 180 H Random Glucose 140 H Fasting Glucose B-Natriuretic Peptide Albumin 03/15/22 03/15/22 03/15/22 07:34 10:10 11:04 RBC Hgb Hct MPV Lymph % (Auto) VBG pH VBG HCO3 Carbon Dioxide BUN POC Glucose 125 H 143 H 139 H Random Glucose Fasting Glucose B-Natriuretic Peptide Albumin 03/15/22 03/16/22 15:59 07:45 RBC Hgb Hct MPV Lymph % (Auto) VBG pH VBG HCO3 Carbon Dioxide BUN POC Glucose 224 H 137 H Random Glucose Fasting Glucose B-Natriuretic Peptide Albumin Microbiology: Microbiology 03/12/22 11:25 Thoracentesis Fluid Gram Stain - Final 03/12/22 11:25 Thoracentesis Fluid Anaerobic Culture - Preliminary No growth to date. 03/12/22 11:25 Thoracentesis Fluid Body Fluid Culture - Final No growth after 2 days 03/10/22 13:31 Blood - Venous Blood Culture - Final No growth after 5 days. 03/10/22 11:35 Blood - Venous Blood Culture - Final No growth after 5 days. 03/10/22 07:19 Blood - Venous Blood Culture - Final No growth after 5 days. 03/10/22 07:14 Blood - Venous Blood Culture - Final No growth after 5 days. Diagnostic Findings Chest x-ray: report reviewed and image reviewed CT scan - chest: report reviewed and image reviewed Assessment and Plan (1) Pleural effusion, left: Status: Acute (2) Atelectasis of left lung: Status: Acute (3) Adenocarcinoma of lung: Status: Acute Plan This patient is main problem is the a central mass obstructing the left lower lobe bronchus, causing atelectasis of the left lower lobe, with secondary pleural effusion. As per thoracenteses and cytology exam of the fluid the pleural effusion is malignant secondary to Adeno Carcinoma of the left lung. Atelectasis is secondary to the mass. Patient has respiratory distress with hypoxemia but to treated with O2 supplementation. Recc . Okay to DC Solu-Medrol. Okay to continue IV Rocephin for a few more days, empirically, Oncology consultation, for management of the adeno carcinoma. Patient probably needs the radiation therapy, to relieve the obstruction. No need of bronchoscopy at this time as the diagnosis is established. However if respiratory distress gets worse, Bronchoscopy can be considered. Thank you for asking me to see this patient. Procedures Date of Service Date of Service: 03/16/22
[2022-03-16 11:36] LABS: Glucose, Whole Blood 167 mg/dL (60-115)
[2022-03-16] MEDS: Insulin Lispro 100 UNIT/ML 3 ML VIAL SUBCUT ×3 (12:34→21:23)
[2022-03-16] MEDS: cefTRIAXone sodium 1 GM in 0.9 % Sodium Chloride 50 ML IV (12:34)
[2022-03-16 15:28] VITALS: BP 110/61; PULSE 69; RESP 18; TEMP 36.3; O2SAT 94
[2022-03-16 16:16] LABS: Glucose, Whole Blood 209 mg/dL (60-115)
[2022-03-16 19:39] VITALS: BP 117/62; PULSE 77; RESP 18; TEMP 37.1; O2SAT 94
[2022-03-16 20:14] LABS: Glucose, Whole Blood 307 mg/dL (60-115)
[2022-03-16] MEDS: Doxazosin Mesylate 2 MG TABLET 8 MG PO (21:22)
[2022-03-16 23:38] VITALS: BP 127/75; PULSE 77; RESP 17; TEMP 36.1; O2SAT 94
[2022-03-17] MEDS: 0.9 % Sodium Chloride Flush 3 ML SYRINGE IVFLUSH ×3 (00:08→15:32)
[2022-03-17] MEDS: methylPREDNISolone Sod Succ 125 MG/2 ML VIAL 60 MG IVPUSH ×2 (05:20→10:16)
[2022-03-17 07:35] VITALS: BP 118/73; PULSE 79; RESP 20; TEMP 36.3; O2SAT 92
[2022-03-17 07:41] LABS: Glucose, Whole Blood 245 mg/dL (60-115)
[2022-03-17] MEDS: Insulin Lispro 100 UNIT/ML 3 ML VIAL SUBCUT ×5 (07:51→21:58)
[2022-03-17] MEDS: Losartan Potassium 50 MG TABLET 100 MG PO (07:52)
[2022-03-17] MEDS: amLODIPine Besylate 5 MG TABLET PO (07:52)
[2022-03-17] MEDS: Cholecalciferol (Vitamin D3) 25 MCG TABLET 50 MCG PO (07:53)
[2022-03-17] MEDS: Magnesium Oxide 400 MG TABLET PO ×2 (07:53→17:19)
[2022-03-17] MEDS: Finasteride 5 MG TABLET PO (07:53)
[2022-03-17] MEDS: Perphenazine 4 MG TABLET PO ×3 (07:53→20:50)
[2022-03-17] MEDS: Atorvastatin Calcium 40 MG TABLET PO (07:55)
[2022-03-17 08:48] LABS: Hemoglobin 11.4 g/dl (14.0-18.0); Mean Corpuscular HGB Conc 32.6 g/dl (31.0-36.0); Mean Corpuscular Hemoglobin 29.1 pg (27.0-33.0); Mean Corpuscular Volume 89.3 fL (80.0-98.0); Mean Platelet Volume 9.9 fL (9.4-12.4); Platelet Count 247 X10*3/uL (160-400); Red Blood Count 3.92 X10*6/uL (4.60-5.80); Red Cell Distribution Width 12.8 % (11.0-16.0); White Blood Count 12.1 X10*3/uL (4.8-10.8)
[2022-03-17 09:22] LABS: Anion Gap 14 (12-20); Blood Urea Nitrogen 47 mg/dL (9-16); Calcium 9.7 mg/dL (8.4-10.2); Carbon Dioxide 29 mmol/L (22-29); Chloride 96 mmol/L (96-108); Creatinine Clr Calc Pharmacy 43.9; Estimated Glomerular Filt Rate 48; Glucose Random 390 mg/dL (60-115); Potassium 5.4 mmol/L (3.3-5.1); Sodium 134 mmol/L (135-145)
[2022-03-17] MEDS: Sodium Zirconium Cyclosilicate 5 GM POWD.PACK PO (11:27)
[2022-03-17] MEDS: guaiFENesin LA 600 MG TAB.ER.12H PO ×2 (11:27→20:50)
[2022-03-17 11:37] LABS: Glucose, Whole Blood 391 mg/dL (60-115)
--- NOTE | 2022-03-17 13:21 | P.PNIM_ITS ---
Subjective Subjective Date of Service: 03/17/22 Interval History: seen and examined this morning Physical Exam Vital Signs: Vital Signs: Last Vital Signs Temp 97.3 F 03/17/22 07:35 Pulse 79 03/17/22 07:35 Resp 20 03/17/22 07:35 BP 118/73 03/17/22 07:35 Pulse Ox 92 03/17/22 07:35 BMI result Body Mass Index 28.3 Const: Other: difficult to understand due to aphasia, but able to answer questions appropriately General: cooperative, comfortable, alert and awake Nutritional Appearance: overweight Resp: Effort & Inspection: normal respiratory effort Auscultation: diminished lung sounds Cardio: Rate: regular rate Heart sounds: S1 normal heart sound present and S2 normal heart sound present GI: Inspection: No distended Palpation (GI): Soft to palpation and nontender Extrem: Other: trace edema b/l Objective Data Active Medications Acetaminophen (Acetaminophen 325 Mg Tablet) 650 mg PO Q6H PRN PRN Reason: Pain, Mild (Pain Scale 1-3) Last Admin: 03/16/22 09:49 Dose: 650 mg Documented by: NITHYA Albuterol/Ipratropium (Albuterol/Iprat 2.5/0.5mg 3 Ml Ampul.Neb) 3 ml INHALE RQ4H PRN PRN Reason: Shortness of Breath/Wheezing Last Admin: 03/15/22 16:51 Dose: 3 ml Documented by: KAYA Amlodipine Besylate (Amlodipine Besylate 5 Mg Tablet) 5 mg PO DAILY [facility]; Protocol Last Admin: 03/17/22 07:52 Dose: 5 mg Documented by: NITHYA Aspirin (Aspirin 81 Mg Tab.Chew) 81 mg PO DAILY [facility] Last Admin: 03/15/22 11:03 Dose: Not Given Documented by: NITHYA Non-Admin Reason: hold Atorvastatin Calcium (Atorvastatin Calcium 40 Mg Tablet) 40 mg PO DAILY [facility] Last Admin: 03/17/22 07:55 Dose: 40 mg Documented by: NITHYA Dextrose (Dextrose 50 % 25 Gm/50 Ml Syringe) 25 gm IVPUSH Q15M PRN; Protocol PRN Reason: per Hypoglycemia Standing Ord. Doxazosin Mesylate (Doxazosin Mesylate 2 Mg Tablet) 8 mg PO BEDTIME [facility]; Protocol Last Admin: 03/16/22 21:22 Dose: 8 mg Documented by: YAMILA Finasteride (Finasteride 5 Mg Tablet) 5 mg PO DAILY [facility] Last Admin: 03/17/22 07:53 Dose: 5 mg Documented by: NITHYA Glucose (Glucose Gel 15 Gm Gel..Gram.) 15 gm PO Q15M PRN; Protocol PRN Reason: per Hypoglycemia Standing Ord. Guaifenesin (Guaifenesin La 600 Mg Tab.Er.12h) 600 mg PO BID [facility] Last Admin: 03/17/22 11:27 Dose: 600 mg Documented by: NITHYA Insulin Human Lispro (Insulin Lispro 100 Unit/Ml 3 Ml Vial) 0 unit SUBCUT QIDACHS [facility]; Protocol Last Admin: 03/17/22 11:28 Dose: 10 unit Documented by: NITHYA Losartan Potassium (Losartan Potassium 50 Mg Tablet) 100 mg PO DAILY [facility]; Pr otocol Last Admin: 03/17/22 07:52 Dose: 100 mg Documented by: NITHYA Magnesium Oxide (Magnesium Oxide 400 Mg Tablet) 400 mg PO BIDPC [facility] Last Admin: 03/17/22 07:53 Dose: 400 mg Documented by: NITHYA Methylprednisolone Sodium Succinate (Methylprednisolone Sod Succ 125 Mg/2 Ml Vial) 60 mg IVPUSH Q6H [facility] Last Admin: 03/17/22 10:16 Dose: 60 mg Documented by: NITHYA Perphenazine (Perphenazine 4 Mg Tablet) 4 mg PO TID [facility] Last Admin: 03/17/22 07:53 Dose: 4 mg Documented by: NITHYA Pharmacy Consult (Consult Rx Perform Med Rec) 1 each MISCELLANE ONCE PRN PRN Reason: Consult order Sodium Chloride (0.9 % Sodium Chloride Flush 3 Ml Syringe) 3 ml IVFLUSH QSHIFT [facility] Last Admin: 03/17/22 07:54 Dose: 3 ml Documented by: NITHYA Vitamin D (Cholecalciferol (Vitamin D3) 25 Mcg Tablet) 50 mcg PO DAILY [facility] Last Admin: 03/17/22 07:53 Dose: 50 mcg Documented by: NITHYA Labs CBC & Chem 7: 03/17/22 08:37 03/17/22 08:37 Labs: Laboratory Results - last 24 hr 03/16/22 03/16/22 03/17/22 16:13 20:08 07:33 MCV MCH MCHC RDW Plt Count MPV Absolute Nucleated RBC Nucleated RBC % (auto) Anion Gap Estim Creat Clear Calc Estimated GFR POC Glucose 209 H 307 H 245 H Random Glucose Calcium 03/17/22 03/17/22 03/17/22 08:37 08:37 11:05 MCV 89.3 MCH 29.1 MCHC 32.6 RDW 12.8 Plt Count 247 MPV 9.9 Absolute Nucleated RBC 0.000 Nucleated RBC % (auto) 0.0 Anion Gap 14 Estim Creat Clear Calc 43.9 Estimated GFR 48 POC Glucose 391 H* Random Glucose 390 H* Calcium 9.7 Microbiology Microbiology Results: Microbiology 03/12/22 11:25 Gram Stain - Final Thoracentesis Fluid Anaerobic Culture - Final NO GROWTH AFTER 5 DAYS Body Fluid Culture - Final No growth after 2 days Assessment and Plan (1) Acute respiratory failure with hypoxemia: Status: Acute (2) Pleural effusion, left: Status: Acute (3) Adenocarcinoma of lung: Status: Acute Plan 76yo M resident of [facility] [LTC] presenting with dyspnea, found to be hypoxic with L pleural effusion, postobstructive pneumonia with underlying lung mass KAREEM creatinine up to 1.42. baseline around 1 hold losartan follow BMP hyperkalemia s/p lokelma hold losartan follow BMP acute hypoxic resp failure-O2 sat remains low - continue to wean O2 as tolerated, keep O2 sat > 92 pleural effusion Moderate left sided effusion seen on CTA from 03/12 - thoracentesis done 03/12/22 with removal of 1.1L of exudative pleural fluid. Micro is negative. 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 rate-controlled. HTN - amlodipine hx CVA h/o aphagia/hemiparesis - continue statin - ASA on hold for possible intervention BPH - doxazosin + finasteride DM2 BS uncontrolled secondary to steroids use pulm rec to d/c steroids - correction-dose lispro mood disorder - continue perphenazine + diazepam VTE ppx - SCDs attending: dr. fairbanks code status - full code requires continued hospitalization for the following reasons: hypoxia requring oxygen titration, possible plurex cath placement Quality Stroke Does the patient have a stroke diagnosis?: No VTE Prior VTE?: No VTE Risk Level:: Medical - moderate - high VTE Device Contraindication: Treatment Not Indicated VTE Drug Contraindication: N/A - Med Ordered
[2022-03-17] MEDS: Albuterol/Iprat 2.5/0.5MG 3 ML AMPUL.NEB INHALE ×2 (14:33→20:35)
[2022-03-17 14:35] VITALS: PULSE 74; RESP 18; O2SAT 95
[2022-03-17 15:55] VITALS: BP 97/51; PULSE 80; RESP 17; TEMP 36.2; O2SAT 94
[2022-03-17 16:45] LABS: Glucose, Whole Blood 174 mg/dL (60-115)
--- NOTE | 2022-03-17 20:41 | PM.EVENT ---
Event Note Date of Service: 03/17/22 Event Note: pt's xray showing a small pneumothorax. per radiology, likely secondary to recent thoracentesis pt hemodynamically stable. bilateral wheezing will monitor resp status will likely need serial chest xray to evaluate resolution
[2022-03-17] MEDS: Doxazosin Mesylate 2 MG TABLET 8 MG PO (20:50)
[2022-03-17 21:32] LABS: Glucose, Whole Blood 206 mg/dL (60-115)
[2022-03-17 21:38] VITALS: PULSE 80; RESP 17
[2022-03-18] VITALS (7 sets, daily range): BP systolic 108–126; BP diastolic 54–76; PULSE 67–80; RESP 16–20; TEMP 36.1–36.6; O2SAT 90–94
[2022-03-18] MEDS: 0.9 % Sodium Chloride Flush 3 ML SYRINGE IVFLUSH ×4 (00:52→20:12)
[2022-03-18 07:28] LABS: Anion Gap 14 (12-20); Blood Urea Nitrogen 58 mg/dL (9-16); Calcium 9.7 mg/dL (8.4-10.2); Carbon Dioxide 29 mmol/L (22-29); Chloride 97 mmol/L (96-108); Creatinine Clr Calc Pharmacy 55.2; Estimated Glomerular Filt Rate > 60; Glucose Random 189 mg/dL (60-115); Potassium 5.2 mmol/L (3.3-5.1); Sodium 135 mmol/L (135-145)
[2022-03-18] MEDS: Albuterol/Iprat 2.5/0.5MG 3 ML AMPUL.NEB INHALE ×2 (07:35→14:53)
[2022-03-18 07:46] LABS: Glucose, Whole Blood 160 mg/dL (60-115)
[2022-03-18] MEDS: Insulin Lispro 100 UNIT/ML 3 ML VIAL SUBCUT ×4 (07:58→20:11)
[2022-03-18] MEDS: Atorvastatin Calcium 40 MG TABLET PO (07:59)
[2022-03-18] MEDS: Perphenazine 4 MG TABLET PO ×3 (07:59→20:12)
[2022-03-18] MEDS: guaiFENesin LA 600 MG TAB.ER.12H PO ×2 (07:59→20:12)
[2022-03-18] MEDS: Finasteride 5 MG TABLET PO (07:59)
[2022-03-18] MEDS: Cholecalciferol (Vitamin D3) 25 MCG TABLET 50 MCG PO (07:59)
[2022-03-18] MEDS: Magnesium Oxide 400 MG TABLET PO ×2 (07:59→16:43)
[2022-03-18] MEDS: amLODIPine Besylate 5 MG TABLET PO (07:59)
--- NOTE | 2022-03-18 10:22 | MHC.CM.PN ---
Addendum entered by Maria Isabel Love 03/18/22 13:52: PLAN IS FOR PLEUREX CATH FRIDAY Original Note: [facility] UPDATED WITH EVENT NOTE (03/17/22) FACILITY FOLLOWING FOR PATIENT'S RETURN.
--- NOTE | 2022-03-18 11:13 | P.PNIM_ITS ---
Subjective Subjective Date of Service: 03/18/22 Interval History: Doing well, no sob, O2 stable Review of Systems no fever no chills no sob Physical Exam Vital Signs: Vital Signs: Last Vital Signs Temp 97.9 F 03/18/22 07:24 Pulse 74 03/18/22 07:36 Resp 18 03/18/22 07:36 BP 119/59 L 03/18/22 07:24 Pulse Ox 94 03/18/22 00:00 BMI result Body Mass Index 28.3 Const: Other: Gen: in no acute distress, difficult to understand due to aphasia HEENT: sclera anicteric, moist mucus membranes Neck: supple Lungs: decreased air entry L side Heart: irregularly irregular no murmurs Abd: soft, non-tender, non-distended Ext: no edema Skin: warm/well-perfused Neuro: alert, moderate expressive aphasia, R hemiparesis Objective Data Active Medications Acetaminophen (Acetaminophen 325 Mg Tablet) 650 mg PO Q6H PRN PRN Reason: Pain, Mild (Pain Scale 1-3) Last Admin: 03/16/22 09:49 Dose: 650 mg Documented by: NITHYA Albuterol/Ipratropium (Albuterol/Iprat 2.5/0.5mg 3 Ml Ampul.Neb) 3 ml INHALE RQ4H PRN PRN Reason: Shortness of Breath/Wheezing Last Admin: 03/18/22 07:35 Dose: 3 ml Documented by: KAYA Amlodipine Besylate (Amlodipine Besylate 5 Mg Tablet) 5 mg PO DAILY [facility]; Protocol Last Admin: 03/18/22 07:59 Dose: 5 mg Documented by: SHEILA Aspirin (Aspirin 81 Mg Tab.Chew) 81 mg PO DAILY [facility] Last Admin: 03/15/22 11:03 Dose: Not Given Documented by: NITHYA Non-Admin Reason: hold Atorvastatin Calcium (Atorvastatin Calcium 40 Mg Tablet) 40 mg PO DAILY [facility] Last Admin: 03/18/22 07:59 Dose: 40 mg Documented by: SHEILA Dextrose (Dextrose 50 % 25 Gm/50 Ml Syringe) 25 gm IVPUSH Q15M PRN; Protocol PRN Reason: per Hypoglycemia Standing Ord. Doxazosin Mesylate (Doxazosin Mesylate 2 Mg Tablet) 8 mg PO BEDTIME [facility]; Protocol Last Admin: 03/17/22 20:50 Dose: 8 mg Documented by: YAMILA Finasteride (Finasteride 5 Mg Tablet) 5 mg PO DAILY [facility] Last Admin: 03/18/22 07:59 Dose: 5 mg Documented by: SHEILA Glucose (Glucose Gel 15 Gm Gel..Gram.) 15 gm PO Q15M PRN; Protocol PRN Reason: per Hypoglycemia Standing Ord. Guaifenesin (Guaifenesin La 600 Mg Tab.Er.12h) 600 mg PO BID [facility] Last Admin: 03/18/22 07:59 Dose: 600 mg Documented by: SHEILA Insulin Human Lispro (Insulin Lispro 100 Unit/Ml 3 Ml Vial) 0 unit SUBCUT QIDACHS [facility]; Protocol Last Admin: 03/18/22 07:58 Dose: 2 unit Documented by: SHEILA Losartan Potassium (Losartan Potassium 50 Mg Tablet) 100 mg PO DAILY [facility]; Protocol Last Admin: 03/17/22 07:52 Dose: 100 mg Documented by: NITHYA Magnesium Oxide (Magnesium Oxide 400 Mg Tablet) 400 mg PO BIDPC [facility] Last Admin: 03/18/22 07:59 Dose: 400 mg Documented by: SHEILA Perphenazine (Perphenazine 4 Mg Tablet) 4 mg PO TID [facility] Last Admin: 03/18/22 07:59 Dose: 4 mg Documented by: SHEILA Pharmacy Consult (Consult Rx Perform Med Rec) 1 each MISCELLANE ONCE PRN PRN Reason: Consult order Sodium Chloride (0.9 % Sodium Chloride Flush 3 Ml Syringe) 3 ml IVFLUSH QSHIFT [facility] Last Admin: 03/18/22 07:59 Dose: 3 ml Documented by: SHEIAL Vitamin D (Cholecalciferol (Vitamin D3) 25 Mcg Tablet) 50 mcg PO DAILY [facility] Last Admin: 03/18/22 07:59 Dose: 50 mcg Documented by: SHEILA Labs CBC & Chem 7: 03/17/22 08:37 03/18/22 07:02 Labs: Laboratory Results - last 24 hr 03/17/22 03/17/22 03/17/22 11:05 16:40 21:26 Anion Gap Estim Creat Clear Calc Estimated GFR POC Glucose 391 H* 174 H 206 H Random Glucose Calcium 03/18/22 03/18/22 07:02 07:23 Anion Gap 14 Estim Creat Clear Calc 55.2 Estimated GFR > 60 POC Glucose 160 H Random Glucose 189 H D Calcium 9.7 Microbiology Microbiology Results: Microbiology 03/12/22 11:25 Gram Stain - Final Thoracentesis Fluid Anaerobic Culture - Final NO GROWTH AFTER 5 DAYS Body Fluid Culture - Final No growth after 2 days Assessment and Plan (1) Acute respiratory failure with hypoxemia: Status: Acute (2) Pleural effusion, left: Status: Acute (3) Adenocarcinoma of lung: Status: Acute Plan 76yo M resident of [facility] [LTC] presenting with dyspnea, found to be hypoxic with L pleural effusion, postobstructive pneumonia with underlying lung mass KAREEM creatinine up to 1.42. baseline around 1 hold losartan follow BMP hyperkalemia s/p lokelma hold losartan follow BMP acute hypoxic resp failure-O2 sat remains low - continue to wean O2 as tolerated, keep O2 sat > 92 pleural effusion Moderate left sided effusion seen on CTA from 03/12 - thoracentesis done 03/12/22 with removal of 1.1L of exudative pleural fluid. Micro is negative. 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 rate-controlled. HTN - amlodipine hx CVA h/o aphagia/hemiparesis - continue statin - ASA on hold for possible intervention BPH - doxazosin + finasteride DM2 BS uncontrolled secondary to steroids use pulm rec to d/c steroids - correction-dose lispro mood disorder - continue perphenazine + diazepam VTE ppx - SCDs attending: dr. fairbanks code status - full code requires continued hospitalization for the following reasons: hypoxia requring oxygen titration, possible plurex cath placement tomorrow Quality Stroke Does the patient have a stroke diagnosis?: No VTE Prior VTE?: No VTE Risk Level:: Medical - moderate - high VTE Device Contraindication: Treatment Not Indicated VTE Drug Contraindication: N/A - Med Ordered
[2022-03-18 11:30] LABS: Glucose, Whole Blood 217 mg/dL (60-115)
[2022-03-18] MEDS: Acetaminophen 325 MG TABLET 650 MG PO ×2 (14:28→21:08)
[2022-03-18 15:29] LABS: Glucose, Whole Blood 198 mg/dL (60-115)
[2022-03-18 20:04] LABS: Glucose, Whole Blood 230 mg/dL (60-115)
[2022-03-18] MEDS: Doxazosin Mesylate 2 MG TABLET 8 MG PO (20:12)
[2022-03-19 06:12] LABS: Anion Gap 11 (12-20); Blood Urea Nitrogen 58 mg/dL (9-16); Calcium 9.8 mg/dL (8.4-10.2); Carbon Dioxide 36 mmol/L (22-29); Chloride 99 mmol/L (96-108); Creatinine Clr Calc Pharmacy 57.2; Estimated Glomerular Filt Rate > 60; Glucose Random 168 mg/dL (60-115); Potassium 5.5 mmol/L (3.3-5.1); Sodium 140 mmol/L (135-145)
[2022-03-19 06:32] LABS: INTERNATIONAL NORM RATIO 1.1 (0.9-1.1); Prothrombin Time 12.4 SEC (9.9-13.0)
[2022-03-19 07:22] VITALS: BP 139/73; PULSE 77; RESP 19; TEMP 36.6; O2SAT 93
[2022-03-19 07:41] LABS: Glucose, Whole Blood 166 mg/dL (60-115)
[2022-03-19] MEDS: Sodium Polystyrene Sulfon/Sorb 15 GM/60 ML ORAL.SUSP PO (07:54)
[2022-03-19] MEDS: 0.9 % Sodium Chloride Flush 3 ML SYRINGE IVFLUSH ×3 (07:56→20:11)
--- NOTE | 2022-03-19 08:18 | P.CDIC_ITS ---
CDI Concurrent Query Documentation Clarification: PHYSICIAN'S DOCUMENTATION REQUEST Date of Query: 03/19/2219 Patient Name: Jose C Steward Admit Date: 03/10/22 Dear Doctor, A review of the medical record indicates additional documentation may be needed. Please review below and update the documentation accordingly. Clinical Indicators: Risk Factors/Clinical Indicators/Treatments blood sugar on 03/16/22: 204, 307 blood sugar on 03/17/22: 245 per MD note on 03/18/22: DM2 BS uncontrolled secondary to steroids use pulm rec to d/c steroids - correction-dose lispro Please clarify the following regarding Diabetes Mellitus (DM): Complications of DM: * Hypoglycemia * Hyperglycemia * No complications of DM * Other complication ? please specify * Unable to determine Use of terms such as suspected, likely, concern for, or probable (associated with a specific diagnosis that is being evaluated, monitored, or treated as if it exists) are acceptable and can be coded in the inpatient setting, when documented at the time of discharge. Thank you, Radha San RN Extension: [phone] Please use your independent medical judgment in providing your response. THIS QUERY IS PART OF THE PERMANENT MEDICAL RECORD Provider Response: Other Other Diagnosis: no complications
--- NOTE | 2022-03-19 08:57 | P.PNIM_ITS ---
Subjective Subjective Date of Service: 03/19/22 Interval History: Doing well, no sob, O2 stable, K is slightly higher Review of Systems no fever no chills no sob Physical Exam Vital Signs: Vital Signs: Last Vital Signs Temp 97.9 F 03/19/22 07:22 Pulse 77 03/19/22 07:22 Resp 19 03/19/22 07:22 BP 139/73 03/19/22 07:22 Pulse Ox 93 03/19/22 07:22 BMI result Body Mass Index 28.3 Const: Other: Gen: in no acute distress, difficult to understand due to aphasia HEENT: sclera anicteric, moist mucus membranes Neck: supple Lungs: decreased air entry L side Heart: irregularly irregular no murmurs Abd: soft, non-tender, non-distended Ext: no edema Skin: warm/well-perfused Neuro: alert, moderate expressive aphasia, R hemiparesis Objective Data Active Medications Acetaminophen (Acetaminophen 325 Mg Tablet) 650 mg PO Q6H PRN PRN Reason: Pain, Mild (Pain Scale 1-3) Last Admin: 03/18/22 21:08 Dose: 650 mg Documented by: MINERVA Albuterol/Ipratropium (Albuterol/Iprat 2.5/0.5mg 3 Ml Ampul.Neb) 3 ml INHALE RQ4H PRN PRN Reason: Shortness of Breath/Wheezing Last Admin: 03/18/22 14:53 Dose: 3 ml Documented by: KAYA Amlodipine Besylate (Amlodipine Besylate 5 Mg Tablet) 5 mg PO DAILY [facility]; Protocol Last Admin: 03/19/22 07:38 Dose: Not Given Documented by: SHEILA Non-Admin Reason: NPO Aspirin (Aspirin 81 Mg Tab.Chew) 81 mg PO DAILY [facility] Last Admin: 03/15/22 11:03 Dose: Not Given Documented by: NITHYA Non-Admin Reason: hold Atorvastatin Calcium (Atorvastatin Calcium 40 Mg Tablet) 40 mg PO DAILY [facility] Last Admin: 03/19/22 07:38 Dose: Not Given Documented by: SHEILA Non-Admin Reason: NPO Dextrose (Dextrose 50 % 25 Gm/50 Ml Syringe) 25 gm IVPUSH Q15M PRN; Protocol PRN Reason: per Hypoglycemia Standing Ord. Doxazosin Mesylate (Doxazosin Mesylate 2 Mg Tablet) 8 mg PO BEDTIME [facility]; Protocol Last Admin: 03/18/22 20:12 Dose: 8 mg Documented by: MINERVA Finasteride (Finasteride 5 Mg Tablet) 5 mg PO DAILY [facility] Last Admin: 03/19/22 07:38 Dose: Not Given Documented by: SHEILA Non-Admin Reason: NPO Glucose (Glucose Gel 15 Gm Gel..Gram.) 15 gm PO Q15M PRN; Protocol PRN Reason: per Hypoglycemia Standing Ord. Guaifenesin (Guaifenesin La 600 Mg Tab.Er.12h) 600 mg PO BID [facility] Last Admin: 03/19/22 07:38 Dose: Not Given Documented by: SHEILA Non-Admin Reason: NPO Insulin Human Lispro (Insulin Lispro 100 Unit/Ml 3 Ml Vial) 0 unit SUBCUT QIDACHS [facility]; Protocol Last Admin: 03/19/22 07:37 Dose: Not Given Documented by: SHEILA Non-Admin Reason: NPO Losartan Potassium (Losartan Potassium 50 Mg Tablet) 100 mg PO DAILY [facility]; Protocol Last Admin: 03/17/22 07:52 Dose: 100 mg Documented by: NITHYA Magnesium Oxide (Magnesium Oxide 400 Mg Tablet) 400 mg PO BIDPC [facility] Last Admin: 03/19/22 07:38 Dose: Not Given Documented by: SHEILA Non-Admin Reason: NPO Perphenazine (Perphenazine 4 Mg Tablet) 4 mg PO TID [facility] Last Admin: 03/19/22 07:38 Dose: Not Given Documented by: SHEILA Non-Admin Reason: NPO Pharmacy Consult (Consult Rx Perform Med Rec) 1 each MISCELLANE ONCE PRN PRN Reason: Consult order Sodium Chloride (0.9 % Sodium Chloride Flush 3 Ml Syringe) 3 ml IVFLUSH QSHIFT [facility] Last Admin: 03/19/22 07:56 Dose: 3 ml Documented by: SHEILA Vitamin D (Cholecalciferol (Vitamin D3) 25 Mcg Tablet) 50 mcg PO DAILY [facility] Last Admin: 03/19/22 07:38 Dose: Not Given Documented by: SHEILA Non-Admin Reason: NPO Labs CBC & Chem 7: 03/17/22 08:37 03/19/22 05:33 Labs: Laboratory Results - last 24 hr 03/18/22 03/18/22 03/18/22 11:20 15:21 19:56 PT INR Anion Gap Estim Creat Clear Calc Estimated GFR POC Glucose 217 H 198 H 230 H Random Glucose Calcium 03/19/22 03/19/22 03/19/22 05:33 05:33 07:20 PT 12.4 INR 1.1 Anion Gap 11 L Estim Creat Clear Calc 57.2 Estimated GFR > 60 POC Glucose 166 H Random Glucose 168 H Calcium 9.8 Assessment and Plan (1) Acute respiratory failure with hypoxemia: Status: Acute (2) Pleural effusion, left: Status: Acute (3) Adenocarcinoma of lung: Status: Acute Plan 76yo M resident of [facility] [LTC] presenting with dyspnea, found to be hypoxic with L pleural effusion, postobstructive pneumonia with underlying lung mass KAREEM--resolved. Hyperkalemia--likely from Losartan Hyperkalemia--5.5, Losartan Acute hypoxic resp failure d/t Lung ca, effusion, still requiring high O2 6L, sating 93, yet breathing is comfortable pleural effusion Moderate left sided effusion seen on CTA from 03/12 - thoracentesis done 03/12/22 with removal of 1.1L of exudative pleural fluid. Micro is negative. 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 rate-controlled. HTN - amlodipine, Losartan on hold hx CVA h/o aphagia/hemiparesis - continue statin - ASA on hold for possible intervention BPH - doxazosin + finasteride DM2--acceptable control, continue correctional Lispro mood disorder - continue perphenazine + diazepam VTE ppx Full code requires continued hospitalization for the following reasons: hypoxia requring oxygen titration, possible plurex cath placement today Quality Stroke Does the patient have a stroke diagnosis?: No VTE Prior VTE?: No VTE Risk Level:: Medical - moderate - high VTE Device Contraindication: Treatment Not Indicated VTE Drug Contraindication: N/A - Med Ordered
[2022-03-19 11:34] LABS: Glucose, Whole Blood 172 mg/dL (60-115)
[2022-03-19] MEDS: Lidocaine HCl 1 % MPF 5 ML VIAL 20 ML SUBCUT (14:09)
[2022-03-19 14:17] VITALS: BP 118/54; PULSE 81; RESP 18; TEMP 36.7; O2SAT 91
[2022-03-19 14:32] VITALS: BP 110/57; PULSE 85; RESP 21; O2SAT 92
[2022-03-19] MEDS: Acetaminophen 325 MG TABLET 650 MG PO (15:05)
[2022-03-19] MEDS: Perphenazine 4 MG TABLET PO ×2 (15:05→20:05)
[2022-03-19 16:00] VITALS: BP 105/56; PULSE 78; RESP 17; TEMP 36.6; O2SAT 95
[2022-03-19 16:09] LABS: MANUAL DIFF FLAG NO
[2022-03-19 16:21] LABS: Basophils Percent Auto 0.2 % (0-2); Eosinophils Absolute Auto 0.2 X10*3/uL (0.0-0.4); Eosinophils Percent Auto 1.5 % (0-4); Hematocrit 35.2 % (42.0-52.0); Hemoglobin 11.3 g/dl (14.0-18.0); Imm Gran Abs Auto 0.05 X10*3/uL (0.00-0.03); Imm Gran Pct Auto 0.5 % (0.0-0.4); Lymphocytes Absolute Auto 0.9 X10*3/uL (1.2-4.9); Lymphocytes Percent Auto 8.6 % (20-40); Mean Corpuscular HGB Conc 32.1 g/dl (31.0-36.0); Mean Corpuscular Volume 90.3 fL (80.0-98.0); Mean Platelet Volume 10.1 fL (9.4-12.4); Monocytes Percent Auto 9.9 % (2-11); Neutrophils Percent Auto 79.3 % (45-73); Platelet Count 257 X10*3/uL (160-400); Red Cell Distribution Width 13.2 % (11.0-16.0); White Blood Count 10.1 X10*3/uL (4.8-10.8)
[2022-03-19 16:26] LABS: INTERNATIONAL NORM RATIO 1.1 (0.9-1.1); Prothrombin Time 12.4 SEC (9.9-13.0)
[2022-03-19 16:33] LABS: Glucose, Whole Blood 289 mg/dL (60-115)
[2022-03-19] MEDS: Magnesium Oxide 400 MG TABLET PO (17:50)
[2022-03-19 19:56] LABS: Glucose, Whole Blood 232 mg/dL (60-115)
[2022-03-19] MEDS: guaiFENesin LA 600 MG TAB.ER.12H PO (20:05)
[2022-03-19] MEDS: Insulin Lispro 100 UNIT/ML 3 ML VIAL SUBCUT (20:05)
[2022-03-19] MEDS: Doxazosin Mesylate 2 MG TABLET 8 MG PO (20:05)
[2022-03-19 23:39] VITALS: BP 131/61; PULSE 67; RESP 18; TEMP 36.8; O2SAT 96
[2022-03-20] MEDS: Acetaminophen 325 MG TABLET 650 MG PO ×2 (02:11→08:17)
[2022-03-20 07:49] VITALS: BP 128/64; PULSE 78; RESP 19; TEMP 36.4; O2SAT 95
[2022-03-20 07:50] LABS: Glucose, Whole Blood 150 mg/dL (60-115)
[2022-03-20 08:00] VITALS: BP 128/64; PULSE 78; RESP 19; TEMP 36.4; O2SAT 95
[2022-03-20] MEDS: Perphenazine 4 MG TABLET PO ×2 (08:13→14:20)
[2022-03-20] MEDS: guaiFENesin LA 600 MG TAB.ER.12H PO (08:13)
[2022-03-20] MEDS: amLODIPine Besylate 5 MG TABLET PO (08:13)
[2022-03-20] MEDS: Atorvastatin Calcium 40 MG TABLET PO (08:14)
[2022-03-20] MEDS: Finasteride 5 MG TABLET PO (08:14)
[2022-03-20] MEDS: Magnesium Oxide 400 MG TABLET PO (08:14)
[2022-03-20] MEDS: Cholecalciferol (Vitamin D3) 25 MCG TABLET 50 MCG PO (08:14)
[2022-03-20] MEDS: 0.9 % Sodium Chloride Flush 3 ML SYRINGE IVFLUSH (08:14)
--- NOTE | 2022-03-20 09:20 | PM.PNPUL ---
Subjective Subjective Date of Service: 03/20/22 Interval history: The patient was seen on exam. Overall he feels well. He is eating breakfast. He is using his oxygen. He does not have any complaints at this time. He was evaluated by Oncology. Still waiting for molecular markers to address treatment of this stage for lung cancer. The patient does have a pleural effusion. Status post thoracentesis positive for malignancy. The patient did undergo PleurX catheter placement. Overall he is feeling better he is requesting to go home. Objective Data Labs CBC & Chem 7: 03/19/22 16:02 03/19/22 05:33 Labs: Laboratory Results - last 24 hr 03/19/22 03/19/22 03/19/22 11:17 16:02 16:02 WBC 10.1 RBC 3.90 L Hgb 11.3 L Hct 35.2 L MCV 90.3 MCH 29.0 MCHC 32.1 RDW 13.2 Plt Count 257 MPV 10.1 Immature Gran % (Auto) 0.5 H Neut % (Auto) 79.3 H Lymph % (Auto) 8.6 L [place] % (Auto) 9.9 Eos % (Auto) 1.5 Baso % (Auto) 0.2 Lymph # (Auto) 0.9 L [place] # (Auto) 1.0 Eos # (Auto) 0.2 Baso # (Auto) 0.0 Abs Immat Gran (auto) 0.05 H Absolute Neuts (auto) 8.0 Absolute Nucleated RBC 0.000 Nucleated RBC % (auto) 0.0 PT 12.4 INR 1.1 APTT 29.0 POC Glucose 172 H 03/19/22 03/19/22 03/20/22 16:24 19:42 07:46 WBC RBC Hgb Hct MCV MCH MCHC RDW Plt Count MPV Immature Gran % (Auto) Neut % (Auto) Lymph % (Auto) [place] % (Auto) Eos % (Auto) Baso % (Auto) Lymph # (Auto) [place] # (Auto) Eos # (Auto) Baso # (Auto) Abs Immat Gran (auto) Absolute Neuts (auto) Absolute Nucleated RBC Nucleated RBC % (auto) PT INR APTT POC Glucose 289 H 232 H 150 H Microbiology Microbiology Results: Microbiology 03/12/22 11:25 Thoracentesis Fluid Gram Stain - Final 03/12/22 11:25 Thoracentesis Fluid Anaerobic Culture - Final NO GROWTH AFTER 5 DAYS 03/12/22 11:25 Thoracentesis Fluid Body Fluid Culture - Final No growth after 2 days 03/10/22 13:31 Blood - Venous Blood Culture - Final No growth after 5 days. 03/10/22 11:35 Blood - Venous Blood Culture - Final No growth after 5 days. 03/10/22 07:19 Blood - Venous Blood Culture - Final No growth after 5 days. 03/10/22 07:14 Blood - Venous Blood Culture - Final No growth after 5 days. Review of Systems Constitutional: Denies fever(s) Eyes: Denies change in vision Cardiovascular: Denies chest pain, Denies dyspnea and Reports dyspnea on exertion Respiratory: Denies dyspnea and Reports dyspnea on exertion Gastrointestinal: Reports no additional gastrointestinal complaints Musculoskeletal: Reports no additional musculoskeletal complaints Reports as per HPI and Reports Abnormal speech present Physical Exam Vital Signs: Vital Signs: Last Vital Signs Temp 97.5 F 03/20/22 08:00 Pulse 78 03/20/22 08:00 Resp 19 03/20/22 08:00 BP 128/64 03/20/22 08:00 Pulse Ox 95 03/20/22 08:00 O2 Del Method 03/20/22 08:00 O2 Flow Rate 6.0 03/20/22 08:00 BMI result Body Mass Index 28.3 Const: General: alert Neck: Neck: Yes normal visual inspection Chest: Chest palpation & inspection: normal inspection of the chest Resp: Auscultation: diminished lung sounds Cardio: Rate: regular rate Rhythm: regular rhythm Heart sounds: S1 normal heart sound present and S2 normal heart sound present GI: Inspection: Yes normal to inspection Skin: Rashes: no rashes Neuro: Speech: Abnormal speech present Details: expressive aphasia Extrem: General: Yes normal to inspection Procedures Date of Service Date of Service: 03/20/22 Assessment and Plan Assessment and plan (1) Atelectasis of left lung: Status: Acute (2) Adenocarcinoma of lung: Status: Acute (3) Malignant pleural effusion: Status: Acute Plan Continue drainage PleurX catheter every other day Continue oxygen supplementation to maintain a pulse ox above 90% Will follow-up with oncology regarding potential therapies for the stage for lung cancer. Hopefully there is a molecular marker to provide targeted therapy Follow-up with Pulmonary in a couple weeks Time Spent With Patient Time: Total time spent is greater than 50% in coordination of care (as documented) at patient's floor/unit and/or counseling patient: Progress Note: Quality Stroke Does the patient have a stroke diagnosis?: No
--- NOTE | 2022-03-20 10:51 | PM.DS ---
DS: Providers Provider Date of Service: 03/20/22 Date of admission: 03/10/22 12:47 Primary care physician: Torsten Ramirez MD Consults: 03/16/22 07:25 Consult to Pulmonology Routine Consulting Provider: Rachelle Bull Reason for consultation: effusion, lung mass Has provider been notified: No 03/16/22 09:23 Consult to Hematology / Oncology Routine Consulting Provider: Sasha Reynolds Reason for consultation: lung cancer DS: Diagnosis Discharge Diagnosis (1) Atelectasis of left lung: Status: Acute (2) Adenocarcinoma of lung: Status: Acute (3) Malignant pleural effusion: Status: Acute DS: Summary Hospital Course Hospital Course: Chief Complaint: sob 76M presented with sob. history difficult to obtain due to brocas aphasia from preivous cva, patient reports 2 weeks worsening sob, cough, no fever, no chillds, no chest pain. patient was found to be hypoxic in the 70s on room air. in ED was 87% on room air. CT chest showed no pe, but showed left effusion with 7.3cm ovoid density. patient given levaquin. Hospital course: Acute hypoxic respiratory, lung mass, post obstructive pneumonia. Patient with history of tobacco use and prsented with shortness of breath , cough but no fever or chills. He was hypoxic with O2 in the 70s. CT of chest showed no PE but showed a left pelura effusio with a lung tumor measuring 7.3 cm. This raised concern for malignance and post obstructive penumonia and was put on IV antibiotics and arrangement made thoracentesis done 03/12/22 with removal of 1.1L of exudative pleural fluid. effusion culture was s negative. Cytology is?Positive for malignancy consistent with adenocarcinoma of lung, stage IV. A previously arranged lung biopsy was cancelled and oncology and pulonolgy consultation requested. He was seen by Dr. Reynolds (oncolgist) who has requested additional studies of effusion (?special immunostains/ mutational analysis, to pathology: EGFR, ALK, PDL 1, etc) to guide treatment, also oncology recommended a Placement of Pleurx cathter which was inserted by IR for continuous drain of Malignant Pleural Effusion 2 to 3 times a week, this was done by Harjinder IGLESIAS on 03/19/22 without complications. He will follow up with Dr. Reynolds for treatment plan to be outlined. He completed 7 days antibiotics for post obstructive pneuonia. Acute hypoxic respiratory failure due pneumonia, pleural effusion and lung cancer has resolved but needs oxygen on permanent basis. 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 mood disorder - continue perphenazine + diazepam. Plan of care discussed with patient and daughter, he will return to SNF Time Spent with Patient Time attestation: Total time spent providing and/or coordinating discharge services: Discharge coordination time: Greater than 30 minutes Quality: Safe Use of Opioids Does Pt have an Active Cancer Diagnosis on the Problem List?: Yes Opioid Measure Date for [facility] Report: 02/18/22 Opioid Measure Time for [facility] Report: 12:02 Quality: Stroke Does the patient have a stroke diagnosis?: No Physical Exam Vital Signs: Vital Signs: Last Vital Signs Temp 97.5 F 03/20/22 08:00 Pulse 78 03/20/22 08:00 Resp 19 03/20/22 08:00 BP 128/64 03/20/22 08:00 Pulse Ox 95 03/20/22 08:00 O2 Del Method 03/20/22 08:00 O2 Flow Rate 6.0 03/20/22 08:00 BMI result Body Mass Index 28.3 DS: Data Data Completed and Pending Completed studies during hospitalization [Text1]: Pending at discharge 03/12/22 12:35 Cytology [PTH] Routine Labs on day of discharge: Laboratory Results - last 24 hr 03/19/22 03/19/22 03/19/22 11:17 16:02 16:02 WBC 10.1 RBC 3.90 L Hgb 11.3 L Hct 35.2 L MCV 90.3 MCH 29.0 MCHC 32.1 RDW 13.2 Plt Count 257 MPV 10.1 Immature Gran % (Auto) 0.5 H Neut % (Auto) 79.3 H Lymph % (Auto) 8.6 L [place] % (Auto) 9.9 Eos % (Auto) 1.5 Baso % (Auto) 0.2 Lymph # (Auto) 0.9 L [place] # (Auto) 1.0 Eos # (Auto) 0.2 Baso # (Auto) 0.0 Abs Immat Gran (auto) 0.05 H Absolute Neuts (auto) 8.0 Absolute Nucleated RBC 0.000 Nucleated RBC % (auto) 0.0 PT 12.4 INR 1.1 APTT 29.0 POC Glucose 172 H 03/19/22 03/19/22 03/20/22 16:24 19:42 07:46 WBC RBC Hgb Hct MCV MCH MCHC RDW Plt Count MPV Immature Gran % (Auto) Neut % (Auto) Lymph % (Auto) [place] % (Auto) Eos % (Auto) Baso % (Auto) Lymph # (Auto) [place] # (Auto) Eos # (Auto) Baso # (Auto) Abs Immat Gran (auto) Absolute Neuts (auto) Absolute Nucleated RBC Nucleated RBC % (auto) PT INR APTT POC Glucose 289 H 232 H 150 H Discharge Plan Discharge Anticipated Discharge Date/Time: 03/20/22 10:45 Patient Disposition: er [facility] Discharge Diagnosis: Lung cancer Referrals: Torsten Ramirez MD [Primary Care Provider] - 1 Week Sasha Reynolds MD [Physician] - 2 Weeks Duane Mattson MD [Physician] - 2 Weeks Discharge Medications: Continued atorvastatin 40 mg tablet 1 tab PO DAILY acetaminophen 325 mg Tablet 650 mg PO Q4H PRN (Reason: Pain) amlodipine 5 mg tablet 1 tab PO DAILY doxazosin 8 mg tablet 1 tab PO BEDTIME aspirin 81 mg Tablet,Chewable 81 mg PO DAILY finasteride 5 mg tablet 1 tab PO DAILY clorazepate dipotassium 7.5 mg tablet 7.5 mg PO TID omega 2-apr-dnv-fish oil [Fish Oil] 1,200 (144-216) mg Capsule 3 cap PO DAILY metformin 500 mg tablet 1 tab PO BID perphenazine 2 mg tablet 4 mg PO TID cholecalciferol (vitamin D3) 50 mcg (2,000 unit) Tablet 50 mcg PO DAILY Discontinued losartan 100 mg tablet 1 tab PO DAILY Discharge Orders: Discharge Order (Routine); Ordered 03/20/22 Ordered By: Rigo Avila Diet: advance to usual diet Activity on Discharge: As tolerated Stand Alone Forms: Patient Portal Discharge page Care Plan Goals: Cancer treatment Health Concerns: Lung cancer Plan of Treatment: Follow up with Dr. Reynolds in oncology for treatment plan for the lung cancer PleurX cather drain 2 to 3 times a week Stop Losartan PleurX cath dressing change: Gauze sponge with Tegaderm dressing upon emptying Follow up with oncology Dr. Reynolds and Pulmonology Dr. Mattson Assessment: as above
[2022-03-20 11:34] LABS: Glucose, Whole Blood 323 mg/dL (60-115)
[2022-03-20 11:38] LABS: Anion Gap 12 (12-20); Blood Urea Nitrogen 38 mg/dL (9-16); Calcium 9.5 mg/dL (8.4-10.2); Carbon Dioxide 33 mmol/L (22-29); Chloride 96 mmol/L (96-108); Creatinine Clr Calc Pharmacy 62.4; Estimated Glomerular Filt Rate > 60; Glucose Random 368 mg/dL (60-115); Potassium 4.9 mmol/L (3.3-5.1); Sodium 136 mmol/L (135-145)
[2022-03-20] MEDS: Insulin Lispro 100 UNIT/ML 3 ML VIAL SUBCUT (11:54)
[2022-03-20 12:59] LABS: COVID-19 Test Negative (Negative); IDNOW Serial# 55D5AD1C
--- NOTE | 2022-03-20 13:51 | MHC.CM.PN ---
PATIENT TO RETURN TO [facility] TODAY VIA [facility] REQUEST MADE FOR A 1500 FINANCIAL COORDINATOR. DAUGHTER (IN ROOM) AND PATIENT AWARE OF PLAN. UNIT AND RN AWARE. IMM 03/19 IN CHART PATIENT LEAVING WITH A CONTAINER FROM [place] [id number] STOCK. SUPPLY ROOM AWARE AND IS BRINGING MORE TO REPLACE.
[2022-03-20 15:30] LABS: Glucose, Whole Blood 97 mg/dL (60-115)
== END 2022-03-20 15:29 | disposition skilled nursing facility (03) | DRG 180 ==
LOC: HO.ED 10:00 → HO.EDOVER 12:49 → HO.S3 17:07
PROVIDERS: Family Medicine; Pathology Anatomic Pathology & Clinical Pathology; Physician Assistant Medical; Radiology Diagnostic Radiology; Student in an Organized Health Care Education/Training Program; Admitting Provider Internal Medicine; Emergency Provider Emergency Medicine; PCP Family Medicine; Visit Provider Internal Medicine
PROC: 0W9B3ZZ Drainage of Left Pleural Cavity, Percutaneous Approach (ICD-10-PCS; principal; 2022-03-12 10:30)
DX: C34.92 Malignant neoplasm of unspecified part of left bronchus or lung (principal); J96.01 Acute respiratory failure with hypoxia; J18.9 Pneumonia, unspecified organism; J91.0 Malignant pleural effusion; K86.2 Cyst of pancreas; I69.351 Hemiplegia and hemiparesis following cerebral infarction affecting right dominant side; N17.9 Acute kidney failure, unspecified; I48.20 Chronic atrial fibrillation, unspecified; J95.811 Postprocedural pneumothorax; J98.11 Atelectasis; I10 Essential (primary) hypertension; F39 Unspecified mood [affective] disorder; N40.0 Benign prostatic hyperplasia without lower urinary tract symptoms; F01.50 Vascular dementia, unspecified severity, without behavioral disturbance, psychotic disturbance, mood disturbance, and anxiety; E11.65 Type 2 diabetes mellitus with hyperglycemia; E87.5 Hyperkalemia; T38.0X5A Adverse effect of glucocorticoids and synthetic analogues, initial encounter; I69.320 Aphasia following cerebral infarction; Z20.822 Contact with and (suspected) exposure to COVID-19; I25.2 Old myocardial infarction; Z87.01 Personal history of pneumonia (recurrent); Z87.891 Personal history of nicotine dependence; Z79.82 Long term (current) use of aspirin; Z79.4 Long term (current) use of insulin; Z79.899 Other long term (current) drug therapy
CPT/HCPCS: 32550; 32555; 36415; 71045; 71046; 71275; 74177; 80048; 80053; 81210; 81235; 81479; 82042; 82803; 82945; 82947; 83605; 83615; 83735; 83880; 84075; 84145; 84157; 84484; 85025; 85027; 85379; 85610; 85730; 87040; 87070; 87073; 87205; 87502; 87635; 88112; 88305; 88341; 88342; 88360; 88374; 88377; 89051; 93005; 93306; 94640; 96365; 96375; 99284; 99285; C1729; J0696; J1650; J1940; J1956; J2930; Q9957; Q9967